=== PATIENT | male | born 1980 | race Hispanic/Latino ===

== ENCOUNTER 2020-10-05 14:34 | Emergency (ER) | payer BC ==
[~2020-10-05] VITALS: Ht 172.7 cm; Wt 127.0 kg
--- OUTSIDE RECORDS SUMMARY | 2020-10-05 15:07 | XMS REPORT | Clinical Summary ---
Author Author MARIYA [facility] Address Unknown Phone Unavailable Care Team Providers Care Installer Name Role Phone CurtChristian Humphrey PCP Allergies No Known Allergies Medications End Date Status Medication Sig Dispensed Refills Start Date 04/26/2021 Active bisoprolol (ZEBETA) 5 MG Take 0.5 180 tablet 0 0 tablet tablets (2.5 0 mg total) by mouth daily. 04/20/2021 Active acetaminophen (TYLENOL) Take 2 30 tablet 0 325 MG tablet tablets (650 0 mg total) by mouth every 6 (six) hours as needed for up to 360 days. 04/26/2021 Active aspirin 81 MG EC tablet Take 1 tablet 90 tablet 3 (81 mg total) 0 by mouth daily. 06/25/2020 dexAMETHasone (DECADRON) Take 1 tablet 60 tablet 0 0.5 MG tablet (0.5 mg 0 total) by mouth daily for 60 days. 06/24/2020 gabapentin (NEURONTIN) Take 1 180 capsule 0 100 MG capsule capsule (100 0 mg total) by mouth 3 (three) times daily for 60 days. 06/26/2020 fludrocortisone Take 1 tablet 30 tablet 0 04/27/20 2 (FLORINEF) 0.1 mg tablet (0.1 mg 0 total) by mouth every other day for 60 days. 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), simple virilizing Encounters Care Team Description Date Type Specialty Rasahun Cunningham MD BRONCHOSCOPY,LAVAGE 04/24/2020 Surgery Gastroenterology Marlena, MD Nitesh Whiting Jennifer Savannah 04/24/2020 Anesthesia Gastroenterology Event Rishi Peterson MD Farjo, Rashaun Castellanos MD Hemoptysis 04/22/2020 Hospital Intensive Care - Encounter 04/25/2020 04/22/2020 Travel after 10/05/2019 Social History Date Tobacco Use Types Packs/Day Years Used Never Smoker Smokeless Tobacco: Never Used Drinks/Week oz/Week Comments Alcohol Use Yes Alcohol Habits Answer Date Recorded How often do you have a drink containing alcohol? 2-4 time s a month 04/22/2020 How many drinks containing alcohol do you have on No t asked a typical day when you are drinking? How often do you have six or more drinks on one Not asked occasion? Sex Assigned at Date Recorded Not on file Last Filed Vital Signs Reading Time Taken Comments Vital Sign 121/74 04/25/2020 6:00 PM CDT Blood Pressure 84 04/25/2020 6:00 PM CDT Pulse 36.9 C (98.4 F) 04/25/2020 8:00 AM CDT Temperature 20 04/25/2020 6:00 PM CDT Respiratory Rate 96% 04/25/2020 6:00 PM CDT Oxygen Saturation - - Inhaled Oxygen Concentration 137.8 kg (303 lb 12.7 oz) 04/23/2020 10:30 PM CDT Weight 177.8 cm (5' 10") 04/22/2020 9:49 PM CDT Height 43.59 04/22/2020 9:49 PM CDT Body Mass Index Plan of Treatment Health Maintenance Due Date Last Done Comments LIPID PANEL 2015 INFLUENZA VACCINE (#1) 2020 12/09/2019, 08/12/2017 Procedures Comments Procedure Name Priority Date/Time Associated Diag nosis RHYTHM STRIP - SCAN 04/26/2020 2:10 PM CDT XR CHEST 1 VIEW Routine 04/25/2020 PORTABLE/BEDSIDE 8:46 AM CDT HIV-1 ANTIGEN WITH Routine 04/25/2020 HIV-1/2 ANTIBODY 3:58 AM CDT PHOSPHORUS Routine 04/25/2020 3:58 AM CDT MAGNESIUM Routine 04/25/2020 3:58 AM CDT BASIC METABOLIC PANEL (7) Routine 04/25/2020 3:58 AM CDT CBC W/PLT COUNT & AUTO Routine 04/25/2020 DIFFERENTIAL 2:55 AM CDT CBC W/PLT COUNT & AUTO Routine 04/25/2020 DIFFERENTIAL 2:55 AM CDT REPORT OF PROCEDURE - 04/24/2020 ENDOSCOPY URL 2:47 PM CDT CYTOLOGY REQUEST Routine 04/24/2020 2:36 PM CDT CYTOLOGY AP Routine 04/24/2020 2:36 PM CDT BODY FLUID CELL COUNT Routine 04/24/2020 WITH DIFFERENTIAL 2:35 PM CDT AFB CULTURE + SMEAR Routine 04/24/2020 (NON-SPUTUM) 2:35 PM CDT BRONCHIAL CULTURE + GRAM Routine 04/24/2020 STAIN 2:35 PM CDT BRONCHOSCOPY,LAVAGE 04/24/2020 Hemoptysis 1:45 PM CDT PROTHROMBIN TIME/INR Routine 04/24/2020 9:33 AM CDT SARS-COV2/RT-PCR ([facility] & STAT 04/24/2020 REF LABS) 8:26 AM CDT CBC W/PLT COUNT & AUTO Routine 04/24/2020 DIFFERENTIAL 3:24 AM CDT PHOSPHORUS Routine 04/24/2020 3:24 AM CDT MAGNESIUM Routine 04/24/2020 3:24 AM CDT BASIC METABOLIC PANEL (7) Routine 04/24/2020 3:24 AM CDT CBC W/PLT COUNT & AUTO Routine 04/24/2020 DIFFERENTIAL 3:[address] CHEST PE TEST DESIGN STAT 04/23/2020 11:22 PM CDT CBC W/PLT COUNT & AUTO Routine 04/23/2020 DIFFERENTIAL 4:24 AM CDT PHOSPHORUS Routine 04/23/2020 4:24 AM CDT MAGNESIUM Routine 04/23/2020 4:24 AM CDT BASIC METABOLIC PANEL (7) Routine 04/23/2020 4:24 AM CDT CBC W/PLT COUNT & AUTO Routine 04/23/2020 DIFFERENTIAL 4:24 AM CDT CBC W/PLT COUNT & AUTO STAT 04/22/2020 DIFFERENTIAL 10:54 PM CDT BLOOD GAS, VENOUS Routine 04/22/2020 10:54 PM CDT PLATELET COUNT Routine 04/22/2020 10:54 PM CDT FIBRINOGEN Routine 04/22/2020 10:54 PM CDT APTT Routine 04/22/2020 10:54 PM CDT PROTHROMBIN TIME/INR Routine 04/22/2020 10:54 PM CDT PHOSPHORUS STAT 04/22/2020 10:54 PM CDT MAGNESIUM STAT 04/22/2020 10:54 PM CDT BASIC METABOLIC PANEL (7) STAT 04/22/2020 10:54 PM CDT CBC W/PLT COUNT & AUTO STAT 04/22/2020 DIFFERENTIAL 10:54 PM CDT XR CHEST 1 VIEW STAT 04/22/2020 PORTABLE/BEDSIDE 10:20 PM CDT after 10/05/2019 Results * RHYTHM STRIP - SCAN (04/26/2020 2:10 PM CDT) Narrative Performed At This result has an attachment that is n ot available. * XR chest 1 view portable / bedside (04/25/2020 8:46 AM CDT) Only the most recent of 2 results within the time period is included. Specimen Narrative Performed At FINAL REPORT [facility] CLINICAL HISTORY: hx of hemoptysis TECHNIQUE: 1 view of the chest. COMPARISON: 04/22/2020 IMPRESSION: There is increased left lower lung atel ectasis. There is blunting of the left costophrenic angle. The right lung appears relatively well-aerated. The cardiomediastinal susan houette is within normal limits for size. The visualized bones a ppear intact. Signed: Apolinar Carrera MD Report Verified Date/Time: 04/25/2020 09:09:25 Reading Location: [facility] Radiolo gy Reading Room Procedure Note Interface, External Ris In - 04/25/2020 9:11 AM CDT FINAL REPORT CLINICAL HISTORY: hx of hemoptysis TECHNIQUE: 1 view of the chest. COMPARISON: 04/22/2020 IMPRESSION: There is increased left lower lung atelectasis. There is blunting of the left costophrenic angle. The right lung appears relatively well-aerated. The cardiomediastinal silhouette is within normal limits for size. The visualized bones appear intact. Signed: Apolinar Carrera MD Report Verified Date/Time: 04/25/2020 09:09:25 Reading Location: [facility] Radiology Reading Room Performing Organization Address City/[facility] Ph one Number GE RIS * HIV-1 Antigen with HIV-1/2 Antibody (04/25/2020 3:58 AM CDT) HIV-1 Antigen Nonreactive Nonreactive [facility] with HIV 1&2 [facility] Antibody [facility]ENTER Specimen Blood Narrative Performed At Service Specialist ID - PIAYA L [facility] Performing Organization Address City/[facility] Cent[facility] Ph one Number [place] [address] MEDICAL CENTER * Phosphorus (04/25/2020 3:58 AM CDT) Only the most recent of 4 results within the time period is included. Phosphorus 2.7Comment: Specimen slightly 2.3 - 4.7 mg/dL [facility] Specimen Blood Narrative Performed At Service Specialist ID - LEOBARDO L [facility] Performing Organization Address [facility] Ph one Number [place] [address] [phone] [place] [address] * Magnesium (04/25/2020 3:58 AM CDT) Only the most recent of 4 results within the time period is included. Magnesium 2.1Comment: Specimen slightly 1.6 - 2.6 mg/dL [facility] Specimen Blood Narrative Performed At Service Specialist ID - LEOBARDO L [facility] Performing Organization Address [facility] one Number [place] [address] [address] [phone] [place] [address] * Basic Metabolic Panel (04/25/2020 3:58 AM CDT) Only the most recent of 4 results within the time period is included. Sodium 132 (L) 136 - 145 meq/L [facility] Potassium 5.0Comment: Specimen slightly 3.5 - 5.1 meq/L [facility] Chloride 103 98 - 107 meq/L [facility] CO2 19 (L) 22 - 29 meq/L [facility] BUN 15 7 - 21 mg/dL [facility] Creatinine 1.13Comment: Specimen slightly 0.57 - 1.25 mg/ dL [facility] Glucose 191 (H) 70 - 105 mg/dL [facility] Calcium 9.0 8.4 - 10.2 mg/dL [facility] EGFR 72Comment: ESTIMATED GFR IS mL/min/1.73 sq m [facility] NOT ACCURATE CREATININE [facility] CLEARANCE IN PREDICTING [facility] CENTER GLOMERULAR FILTRATION RATE. ESTIMATED GFR IS NOT APPLICABLE FOR DIALYSIS PATIENTS. Specimen Blood Narrative Performed At Service Specialist ID - LEOBARDO L [facility] Performing Organization Address City/State/Zipcode Ph one Number [facility] [address] [place], [place] [address] [facility] * CBC with platelet count + automated diff (04/25/2020 2:55 AM CDT) Only the most recent of 4 results within the time period is included. WBC 13.3 (H) 3.5 - 10.5 K/L [facility] RBC 6.75 (H) 4.63 - 6.08 M/L [facility] Hemoglobin 18.6 (H) 13.7 - 17.5 GM/DL [facility] Hematocrit 57.2 (H) 40.1 - 51.0 % [facility] MCV 84.7 79.0 - 92.2 fL [facility] MCH 27.6 25.7 - 32.2 pg [facility] MCHC 32.5 32.3 - 36.5 GM/DL [facility] RDW 17.0 (H) 11.6 - 14.4 % [facility] Platelets 258 150 - 450 K/CU MM [facility] MPV 11.3 9.4 - 12.4 fL [facility] nRBC 0 0 - 0 /100 WBC [facility] % Neutros 82 % [facility] % Lymphs 12 % [facility] % Monos 5 % [facility] % Eos 0 % [facility] % Baso 0 % [facility] # Neutros 10.95 (H) 1.78 - 5.38 K/L [facility] # Lymphs 1.58 1.32 - 3.57 K/L [facility] # Monos 0.61 0.30 - 0.82 K/L [facility] # Eos 0.01 (L) 0.04 - 0.54 K/L [facility] # Baso 0.05 0.01 - 0.08 K/L [facility] Immature 1 0 - 1 % [facility] Granulocytes-Re [facility] Specimen Blood Performing Organization Address City/[facility] Ph one Number [facility] [address] [place] [address] [facility] * REPORT OF PROCEDURE - ENDOSCOPY URL (04/24/2020 2:47 PM CDT) Narrative Performed At This result has an attachment that is n ot available. * CYTOLOGY REQUEST (04/24/2020 2:36 PM CDT) Cytology See Separate Report [facility] Specimen BAL - Structure of upper lobe of right lung (body structure) Performing Organization Address [facility] Ph one Number [address] [facility] * Cytology (04/24/2020 2:36 PM CDT) Case Report Medical Cytology Report [facility] Case: [id number] [facility]ENTER Authorizing Provider: Rashaun Cunningham MD Collected: 04/24/2020 02:36 PM Ordering Location: [place] [address] ICU Received: 04/24/2020 03:19 PM Pathologist: Tita Parkinson MD Specimen: Lung, Right Upper Lobe DIAGNOSIS RIGHT UPPER LOBE LUNG BAL [facility] Ashanti ctronically (CYTOSPINS): [facility] signed by Tesha, - NEGATIVE FOR MALIGNANCY [facility] MD Tita on Signing Pathologist 04/25/2020 at 5:53 Direct Phone Line: PM [phone] CPT Code(s) [address] [facility] CLINICAL DATA Hemoptysis [facility] SPECIMEN SOURCE RIGHT UPPER LOBE LUNG BAL [facility] GROSS 27 mls in cytorich red; 4 [facility] DESCRIPTION cytospins [facility] Collected: [id number] [facility] Received: [id number] STATEMENT OF Satisfactory [facility] ADEQUACY [facility] Gross [facility] 'S assessment was [place], [facility] BC performed at Pathology, [address] [place] [id number], Technical [facility] 'S component was [facility] BC performed at Pathology, [address] [place] [id number], Professional [facility]KE 'S component was [facility] performed at Pathology, [address] [place] [id number], Specimen BAL - Structure of upper lobe of right lung (body structure) Narrative Performed At This result has an attachment that is n ot available. Performing Organization Address City/State/Zipcode Ph one Number [address] [facility] * AFB culture + smear (non-sputum) (04/24/2020 2:35 PM CDT) Result No acid-fast bacilli isolated [facility] in 42 days [facility] AF[facility] Smear No acid fast bacilli seen [facility] Specimen BAL - Structure of upper lobe of right lung (body structure) Performing Organization Address City/State/Zipcode Ph one Number [facility] [address] [place] [address] [facility] * Bronchial culture + gram stain (04/24/2020 2:35 PM CDT) Result 2+ Normal respiratory sonia [facility] present [facility] Gram Stain <1+ WBCs [facility] Result [facility] Gram Stain No organisms seen [facility] Result [facility] Specimen BAL - Structure of upper lobe of right lung (body structure) Performing Organization Address [facility] one Number [address] [facility] * Body fluid cell count with differential (04/24/2020 2:35 PM CDT) Appearance Turbid (A) Clear [facility] Color Harper (A) Colorless, Straw [facility] RBCs 15,000 (H) <=1 /cu mm [facility] Adjusted WBC 105 (H) <=5 /cu mm [facility] Lining Cells 0 <=1 /cu mm [facility] % Segs 71 % [facility] % Lymphs 8 % [facility] % Monos 21 % [facility] % Eos 0 % [facility] % Baso 0 % [facility] Container Body EDTA Tube [facility] Specimen BAL - Structure of upper lobe of right lung (body structure) Performing Organization Address [facility] one Number [address] [facility] * Prothrombin time/INR (04/24/2020 9:33 AM CDT) Only the most recent of 2 results within the time period is included. Protime 14.1 11.9 - 14.2 seconds [facility] INR 1.1 <=5.9 [facility] Specimen Blood Narrative Performed At Effective 04/06/2019: PT Reference Range Change [facility] New: 11.9-14.2 Previous: 11.7-14.7 [facility] RECOMMENDED COUMADIN/WARFARIN INR THERA PY RANGES STANDARD DOSE: 2.0-3.0 Includes: PROP HYLAXIS for venous thrombosis, systemic embolization; TREATMENT for venous thro mbosis and/or pulmonary embolus. HIGH RISK: Target INR is 2.5-3.5 for pa tients wiht mechanical heart valves. Performing Organization Address City/State/Zipcode Ph one Number [facility] [address] [place], [place] [address] MEDICAL CENTER * SARS-CoV2/RT-PCR (Symptomatic ONLY) (04/24/2020 8:26 AM CDT) SARS-COV2/RT-PC Not Detected Not Detected, [facility] R Negative [facility] SARS-COV-2 [facility] PERFORMING LAB [facility] Specimen Other - Nasopharyngeal wall structure (body structure) Narrative Performed At Negative results do not preclude SARS-C oV-2 infection and should not be used as [facility] the sole basis for patient management decisions. Nega tive results must be [facility] combined with clinical observations, pa tient history, and epidemiological information. A false negative result ma y occur if a specimen is improperly collected, transported or handled. The limit of detection for this assay i s 250 copies/mL. This SARS CoV-2 test is a rapid, real-t hailey RT-PCR test intended for the qualitative detection of nucleic acid f rom SARS-CoV-2 in a nasopharyngeal swab specimen collected from individuals jose luis pected of COVID-19 by their healthcare provider. This test has not been Food and Drug Ad ministration (FDA) cleared or approved and has been authorized by FDA under an Emergency Use Authorization (EUA). This EUA will be effective until the declara tion that circumstances exist justifying the authorization of the emergency use of in vitro diagnostic tests for detection and/or diagnosis of COVID-19 is terminated under Section 564(b)(2) of the Act or the EUA is revoked under Sec tion 564(g) of the Act. Fact Sheet for Healthcare Providers: https://www.FREECULTR.Pharmalink/Documents/Xpert%20Xpress%20SARS%20CoV-2/Fact%20Sheets/30 2-3802%61QUBG-FTA-3%20HEALTHCARE%20PROV IDERS%20FACT%20SHEET.pdf Fact Sheet for Healthcare Patients: https://www.FREECULTR.Pharmalink/Documents/Xpert%20Xpress%20SARS%20CoV-2/Fact%20Sheets/30 2-3801%71QOME-MLY-9%20PATIENT%20FACT%20 SHEET.pdf Performing Laboratory: [facility] [address] [place] [address]. [place] [address] Performing Organization Address City/State/Zipcode Ph one Number MARIYA [facility] [address] [place] [address] [facility]ENTER * CT chest for pulmonary embolus (04/23/2020 11:22 PM CDT) Specimen Narrative Performed At FINAL REPORT [employer] Comparison: CTPA from outside instituti on dated 04/21/2020. Indication: 39-year-old male with acute chest pain, hypoxia, and shortness of breath clinically suspicio us for acute pulmonary embolism. Technique: Postcontrast axial images of the ches t were obtained from above the arch level to the [facility] enhancement of the pulmonary artery. This exam was performed accordi ng to the departmental dose optimization program which includes aut omated exposure control, adjustment of the mA and/or kV accordin g to the patient size, and/or use of an iterative reconstruction tech nique. Findings: Vascular: The study is diagnostic to the level of the proximal segmental, motion artifact limits evaluation of di stal pulmonary arteries. pulmonary arteries. Pulmonary arteries: No evidence of acut e or chronic pulmonary embolism. Specifically, the pulmonary arteries are widely patent, without evidence for filling defect or vascular cutoff. The pulmonary arteries are normal in size. Thoracic aorta: Normal in size. No acut e aortic pathology. The left vertebral artery arises from the arch. The origins of the arch branch vessels are all widely patent. Pulmonary veins: Normal configuration. Coronary arteries: Normal configuration with no significant atherosclerotic calcifications. Systemic veins: No identified thrombus. Chest: Lungs/pleura: Again seen is a 4 mm pulm onary nodule in the right lateral lower lobe which is adjacent to a distal branch of the right lower lobe pulmonary vein. Consolidativ e airspace opacities in the bilateral right greater than left lower lungs, may be in part related to discoid atelectasis however aspirati on versus developing pneumonia in the right lower lobe can have this a ppearance. No pleural effusion or pneumothorax. Mediastinum/meaghan: No pathologically enl arged lymph nodes. Esophagus is normal in caliber. Coarse calcificat ion in the right thyroid lobe otherwise the Thyroid gland is unremark able. Heart: The cardiac chambers demonstr ate normal atrioventricular and ventriculoarterial concordance, and sys temic and pulmonary venous return. The cardiac chamber sizes are n ormal. No pericardial effusion. No thrombus identified within the cardiac chambers. Axillae/subcutaneous soft tissues: No p athologically enlarged axillary lymph nodes. No suspicious sub cutaneous nodules or fluid collections. Visualized upper abdomen: Visualized co mplex bilateral heterogeneous adrenal lesions measuring up to 6.9 cm on the left and 5.2 cm on the right. Hypodensity of the hepatic paren chyma may be related to timing of contrast versus hepatic steatosis . Otherwise visualized abdomen is unremarkable. Bones: No aggressive osseous lesions or acute fractures. Multilevel degenerative changes in thoracic spine. Impression: No evidence for acute or chronic pulmon dimitris embolism however limited evaluation of the distal pulmonary mackenzie ry secondary to motion artifact. Nonspecific 4 mm pulmonary nodule in th e right lateral lower lobe adjacent to a distal branch of the righ t lower lobe pulmonary vein. Heterogeneous airspace opacity in the r ight greater than left lower lungs may be in part related to atelect asis however aspiration and developing infection are differential c oncern. Bilateral heterogeneous adrenal lesions , incompletely visualized and characterized on this examination. Re commend comparison study prior if available versus adrenal protocol cr oss-sectional imaging on a nonemergent basis. Signed: Sridhar Cornejo MD Report Verified Date/Time: 04/24/2020 00:05:46 Procedure Note Interface, External Ris In - 04/24/2020 12:08 AM CDT FINAL REPORT Comparison: CTPA from outside institution dated 04/21/2020. Indication: 39-year-old male with acute chest pain, hypoxia, and shortness of breath clinically suspicious for acute pulmonary embolism. Technique: Postcontrast axial images of the chest were obtained from above the arch level to the lower chest at maximum enhancement of the pulmonary artery. This exam was performed according to the departmental dose optimization program which includes automated exposure control, adjustment of the mA and/or kV according to the patient size, and/or use of an iterative reconstruction technique. Findings: Vascular: The study is diagnostic to the level of the proximal segmental, motion artifact limits evaluation of distal pulmonary arteries. pulmonary arteries. Pulmonary arteries: No evidence of acute or chronic pulmonary embolism. Specifically, the pulmonary arteries are widely patent, without evidence for filling defect or vascular cutoff. The pulmonary arteries are normal in size. Thoracic aorta: Normal in size. No acute aortic pathology. The left vertebral artery arises from the arch. The origins of the arch branch vessels are all widely patent. Pulmonary veins: Normal configuration. Coronary arteries: Normal configuration with no significant atherosclerotic calcifications. Systemic veins: No identified thrombus. Chest: Lungs/pleura: Again seen is a 4 mm pulmonary nodule in the right lateral lower lobe which is adjacent to a distal branch of the right lower lobe pulmonary vein. Consolidative airspace opacities in the bilateral right greater than left lower lungs, may be in part related to discoid atelectasis however aspiration versus developing pneumonia in the right lower lobe can have this appearance. No pleural effusion or pneumothorax. Mediastinum/meaghan: No pathologically enlarged lymph nodes. Esophagus is normal in caliber. Coarse calcification in the right thyroid lobe otherwise the Thyroid gland is unremarkable. Heart: The cardiac chambers demonstrate normal atrioventricular and ventriculoarterial concordance, and systemic and pulmonary venous return. The cardiac chamber sizes are normal. No pericardial effusion. No thrombus identified within the cardiac chambers. Axillae/subcutaneous soft tissues: No pathologically enlarged axillary lymph nodes. No suspicious subcutaneous nodules or fluid collections. Visualized upper abdomen: Visualized complex bilateral heterogeneous adrenal lesions measuring up to 6.9 cm on the left and 5.2 cm on the right. Hypodensity of the hepatic parenchyma may be related to timing of contrast versus hepatic steatosis . Otherwise visualized abdomen is unremarkable. Bones: No aggressive osseous lesions or acute fractures. Multilevel degenerative changes in thoracic spine. Impression: No evidence for acute or chronic pulmonary embolism however limited evaluation of the distal pulmonary artery secondary to motion artifact. Nonspecific 4 mm pulmonary nodule in the right lateral lower lobe adjacent to a distal branch of the right lower lobe pulmonary vein. Heterogeneous airspace opacity in the right greater than left lower lungs may be in part related to atelectasis however aspiration and developing infection are differential concern. Bilateral heterogeneous adrenal lesions, incompletely visualized and characterized on this examination. Recommend comparison study prior if available versus adrenal protocol cross-sectional imaging on a nonemergent basis. Signed: Sridhar Cornejo MD Report Verified Date/Time: 04/24/2020 00:05:46 Performing Organization Address [facility] Ph one Number GE RIS * aPTT (04/22/2020 10:54 PM CDT) PTT 30.5 22.5 - 36.0 seconds [facility] Specimen Blood Performing Organization Address [facility] Ph one Number [address] [facility] * Fibrinogen (04/22/2020 10:54 PM CDT) Fibrinogen 321 225 - 434 mg/dl [facility] Specimen Blood Performing Organization Address [facility] Ph one Number [address] [facility] * Platelet count (04/22/2020 10:54 PM CDT) Platelets 228 150 - 450 K/CU MM [facility] Specimen Blood Narrative Performed At Service Specialist ID - [id number] [facility] Performing Organization Address [facility] one Number [address] [facility] * Blood gas, venous (04/22/2020 10:54 PM CDT) pH, Tahri 7.39 7.32 - 7.42 [facility] pCO2, Tahir 42 41 - 51 mmHg [facility] pO2, Tahir 42 (H) 25 - 40 mmHg [facility] O2 Sat, Tahir 77.2 (H) 40.0 - 70.0 % [facility] HCO3, Tahir 25 21 - 29 mmol/L [facility] Base Excess, -0.4 -2.0 - 3.0 mmol/L [facility] Patient 37.0 C [facility] Temperature [facility] FIO2 100.0 % [facility] Specimen Blood Performing Organization Address City/State/Zipcode Ph one Number [facility] [address] [place], [place] [address] [facility] after 10/05/2019 Insurance Type Payer Benefit Subscriber ID Effective Phone Address Plan / Dates Group PPO BLUE CROSS/BLUE [employer]BS PPO [id number] 2017-P [phone] [address] EPO resent [id number] [place] [id number] Advance Directives For more information, please contact: [phone] Date Inactivated Comments Code Status Date Activated 04/25/2020 9:37 PM Full Code 04/24/2020 6:53 AM This code status was determined by: Patient
--- OUTSIDE RECORDS SUMMARY | 2020-10-05 15:07 | XMS REPORT | Continuity of Care Document ---
Author Author [facility] t Organization [facility] Address [address] [place] [address] Phone Unavailable Care Team Providers Care Area Attendant Name Role Phone NONSTAFF PCP Unavailable ARTURO LEIGH Attphys Unavailable Lilil Wu MD, Arturo Attphys [phone] Octavio VERDUZCO, Jasmin Rodney Attphys Marlena VERDUZCO, Collin Jimenes Attphys [phone] Renee Dowling Attphys [phone] Wade OATES Attphys Unavailable ANDRES BERRIOS Attphys Unavailable LILLI WU ARTURO Admphys Unavailable Wade AMBROSE Admphys Unavailable Payers Payer Name Policy Type Policy Number Effective Date Expiration Date S deepak BLUE CROSS/BLUE SHIELDBCBS PPO POS EPO [id number] [facility] [id number], [place] [address]YMQ [id number] 2017 00:00:00 [facility] [employer] [place] P[place] [id number] I [facility] Problems Condition Name Condition Details Condition Category Status Onset Date Resolution Date Last Treatment Date Treating Clinician Comments Source Hemoptysis Hemoptysis Disease Active 2020-04-23 00:00:00 [facility] 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 Social History Social Habit Start Date Stop Date Quantity Comments Source History SDOH Alcohol Std Drinks [facility] History SDOH Alcohol Binge [facility] Sex Assigned At [facility] Tobacco use and exposure 2020-04-26 00:00:00 2020-04-26 00:00:00 Jo r used [facility] Alcohol intake 2020-04-26 00:00:00 2020-04-26 00:00:00 [facility] of [facility] (finding[facility] Alcohol Frequency 2020-04-22 00:00:00 2020-04-22 00:00:0 0 3 [facility] Smoking Status Start Date Stop Date Source Never smoker [facility] Medications Ordered Medication Name Filled Medication Name Start Date Stop Da te Current Medication? Ordering Clinician Indication Dosage Frequency Signature (SIG) Comments Components Source fludrocortisone (FLORINEF) 0.1 mg tablet 2020-04 00:00:00 2020-06-26 23:59:00 No .1mg Take 1 tablet (0.1 mg total) by mouth every other day for 60 days. [facility] bisoprolol (ZEBETA) 5 MG tablet 2020-04-26 00:00:00 23:59:00 No 2.5mg QD Take 0.5 tablets (2.5 mg total) by mouth daily. [facility] aspirin 81 MG EC tablet 2020-04-26 00:00:00 2021-04-26 23:59:00 No 81mg QD Take 1 tablet (81 mg total) by mouth daily. [facility] dexAMETHasone (DECADRON) 0.5 MG tablet 2020-04-09 8 00:00:00 2020-06-25 23:59:00 No .5mg QD Take 1 tablet (0.5 mg total) by mouth daily for 60 days. [facility] acetaminophen (TYLENOL) 325 MG tablet 2020-04-25 00:00 :00 2021-04-20 23:59:00 No 650mg Take 2 tablets (650 mg total) by mouth every 6 (six) hours as needed for up to 360 days. [facility] gabapentin (NEURONTIN) 100 MG capsule 2020-04-25 00:00 :00 2020-06-24 23:59:00 No 100mg Q.[id number] Take 1 capsule (100 mg total) by mouth 3 (three) times daily for 60 days. [facility] Vital Signs Vital Name Observation Time Observation Value Comments Source Systolic blood pressure 2020-04-25 18:00:00 121 mm[Hg] [facility] Diastolic blood pressure 2020-04-25 18:00:00 74 mm[Hg] [facility] Heart rate 2020-04-25 18:00:00 84 /min [facility] Respiratory rate 2020-04-25 18:00:00 20 /min [facility] Oxygen saturation in Arterial blood by Pulse oximetry 04-25 18:00:00 96 /min [facility] Body temperature 2020-04-25 08:00:00 36.89 Dinah [facility] Body weight 2020-04-23 22:30:00 137.8 kg [facility] BMI 2020-04-23 22:30:00 43.59 kg/m2 [facility] Body height 2020-04-22 21:49:00 177.8 cm [facility] Body Temperature 2020-04-22 19:37:00 98.6 [degF] [facility] Weight 2020-04-22 12:30:00 280 [lb_av] [facility] BMI (Body Mass Index) 2020-04-22 12:30:00 42.6 kg/m2 [facility] Body Temperature 2020-04-21 18:20:00 98.3 [degF] [facility] Weight 2020-04-21 15:29:00 280 [lb_av] [facility] BMI (Body Mass Index) 2020-04-21 15:29:00 42.6 kg/m2 [facility] Procedures Procedure Date / Time Performed Performing Clinician Sourc e RHYTHM STRIP - SCAN 2020-04-26 14:10:28 Provider, Default Noah medina [facility] XR CHEST 1 VIEW PORTABLE/BEDSIDE 2020-04-25 08:46:00 Sukumar Cunningham [facility] BASIC METABOLIC PANEL (7) 2020-04-25 03:58:00 JocelynTiana olvera Polyc simone [facility] MAGNESIUM 2020-04-25 03:58:00 Jocelyn Tanartise Polycarp [facility] PHOSPHORUS 2020-04-25 03:58:00 [facility] HIV-1 ANTIGEN WITH HIV-1/2 ANTIBODY 2020-04-25 03:58:00 Inch [facility]AllenCongregational A [facility] CBC W/PLT COUNT & AUTO DIFFERENTIAL 2020-04-25 02:55:00 Emeka Banks [facility] REPORT OF PROCEDURE - ENDOSCOPY URL 2020-04-24 14:47:43 Erasto Cunningham [facility] CYTOLOGY REQUEST 2020-04-24 14:36:14 Octavio [facility] CYTOLOGY 2020-04-24 14:36:00 Octavio [facility] BRONCHIAL CULTURE + GRAM STAIN 2020-04-24 14:35:29 Octavio [facility] AF[employer] CULTURE + SMEAR (NON-SPUTUM) 2020-04-24 14:35:29 Sukumar Cunningham [facility] BODY FLUID CELL COUNT WITH DIFFERENTIAL 2020-04-24 14:35:29 Marline middleton [facility] BRONCHOSCOPY,LAVAGE 2020-04-24 13:45:00 Rashaun Cunningham [facility] PROTHROMBIN TIME/INR 2020-04-24 09:33:00 Octavio [facility] SARS-COV2/RT-PCR ([facility]) 2020-04-24 08:26:00 Aidan Putnam [facility] BASIC METABOLIC PANEL (7) 2020-04-24 03:24:00 Jocelyn, Tanwie Polyc simone [facility] MAGNESIUM 2020-04-24 03:24:00 Jocelyn, Tanwie Polycarp [facility] PHOSPHORUS 2020-04-24 03:24:00 Jocelyn, Tanwie Polycarp [facility] CBC W/PLT COUNT & AUTO DIFFERENTIAL 2020-04-24 03:24:00 JocelynEmeka Polycarp [facility] CT CHEST PE TEST DESIGN 2020-04-23 23:22:00 Jl Dixon [facility] BASIC METABOLIC PANEL (7) 2020-04-23 04:24:00 Jocelyn, Tanwie Polyc simone [facility] MAGNESIUM 2020-04-23 04:24:00 Jocelyn, Tanwie Polycarp [facility] PHOSPHORUS 2020-04-23 04:24:00 Jocelyn, Tanwie Polycarp [facility] CBC W/PLT COUNT & AUTO DIFFERENTIAL 2020-04-23 04:24:00 Jocelyn, Emeka ash Polycarp [facility] BASIC METABOLIC PANEL (7) 2020-04-22 22:54:00 Jocelyn, Tanwie Polyc simone [facility] MAGNESIUM 2020-04-22 22:54:00 Jocelyn, Tanwie Polycarp [facility] PHOSPHORUS 2020-04-22 22:54:00 Jocelyn, Tanwie Polycarp [facility] PROTHROMBIN TIME/INR 2020-04-22 22:54:00 Jocelyn, Tanwie Polycarp [facility] APTT 2020-04-22 22:54:00 Jocelyn, Tanwie Polycarp [facility] FIBRINOGEN 2020-04-22 22:54:00 Jocelyn, Tanwie Polycarp [facility] BLOOD GAS, VENOUS 2020-04-22 22:54:00 Jocelyn, Tanwie Polycarp [facility] CBC W/PLT COUNT & AUTO DIFFERENTIAL 2020-04-22 22:54:00 Emeka Banks Polycsimone [facility] XR CHEST 1 VIEW PORTABLE/BEDSIDE 2020-04-22 22:20:00 Tyler Banks Polycsimone [facility] Computed tomography of chest with contrast 2020-04-21 00:00:00 [facility] Plan of Care Planned Activity Planned Date Details Comments Source Future Scheduled Test 2020-07-10 00:00:00 INFLUENZA VACCINE (#1) [code = INFLUENZA VACCINE (#1)] [facility] Future Scheduled Test 2015 00:00:00 Lipid panel (proce dure) [code = 31919925] [facility] r Encounters Start Date/Time End Date/Time Encounter Type [facility] ID Source 2020-04-22 12:22:00 2020-04-22 21:04:00 Departed Emergency Room 1 DOLORES OATES [facility] [id number] [facility] 2020-04-21 15:27:00 2020-04-21 18:33:00 Departed Emergency Room 1 ANDRES BERRIOS [facility] [id number] [facility] Results Test Description Test Time Test Comments Results Result Comments Source AFB culture + smear (non-sputum) 2020-06-04 07:59:00 Test Item Result (test code = 6463-4) No acid-fast bacilli isolated in 42 day s AFB Smear (test code = 25178-9) No acid fast bacilli seen [facility] + [facility]MEAR (NON-SPUTUM)2020-06-04 07:59:00 * Test Item Value Reference Range Interpretation Comments CULTURE (BEAKER) (test code = 1095) No acid-fast bacilli isolate d in 42 days AFB SMEAR (BEAKER) (test code = 994) No acid fast bacilli seen Bronchial culture + gram [id number] 08:45:00* Test Item Value Reference Range Interpretation Comments Result (test code = 6463-4) 2+ Normal respiratory sonia present Gram Stain Result (test code = 1123) No organisms [facility] [id number] 08:45:00* Test Item Value Reference Range Interpretation Comments CULTURE (BEAKER) (test code = 1095) 2+ Normal respiratory sonia pre sent GRAM STAIN RESULT (BEAKER) (test code = 1123) <1+ WBCs GRAM STAIN RESULT (BEAKER) (test code = 27223) No organisms seen [id number] 17:53:00* Test Item Value Reference Range Interpretation Comments Case Report (test code = 104) Medical Cytology Report Case: [id number] Authorizing Provider: Rashaun Cunningham MD Collected: 04/24/2020 02:36 PM Ordering Location: [place] [address] ICU Received: 04/24/2020 03:19 PM Pathologist: Tita Parkinson MD Specimen: Lung, Right Upper Lobe DIAGNOSIS (test code = 3220) [file] [id number]FP7Ic47NeB2WrkrEGO4nX== CPT Code(s) (test code = 3357) m9lycOUgDRUniHJrWfUyORJvETOoq6ksJDRbgISaJoLsCuRlPwUgMuikrSJmKFKnEjCvy9lgl363hFRo c8oaWGJbIjQ4dKHyEAJjmCXxV726t2fnn4qacsBliDU0UFFoHUF6EStohxWbbzA6BGecfHDfVbZ6PAoh ajEtQLbeywWznsQlDje3NFTvZ247LCA7rUrtm2rcBQ C8HJBoMYCmMvUjOq7dnXLhZ480WJAvWMVFAOSpoMf7VWCwuhGpgrHmwGFPg644V525s7arQVWkquMghU oAeacmg2plX519ALZarKBehrIyCdTlRANneYWjxTY4YDRwLE2ufkluQaIlDC9dsagbLuOaGQ2edax4Yh FgVK3jnlstWqHnBUeuJARhvkngDTFmc1FvfucgKY5q G4Har6M7fA6nkPNlHCGqeKDcEtOhFEJzms3nbLIpIJqzk5MeFVY9wzO1gNDpgDMkQSUiRR02Noixq2Ig LmhlXUW6VBNrwhIzf8Omm6nfGpOymdElK5wdZ8EkFGMbJBSiTOIlDzWezzYxd0Pdz8UbqOCizGl0f8ly UGJxQOXopSwtk7ayEOX9XONzP3J3kYRwq6cqMLclWQ BmyRR9fdjpBStgFFXrltV4uxguBUkeIAHwjPY3byodOLscOCEbNcY7koolINwrBIIfEDC4TPsxz809EB O6FHwhChuqZKulZXZpqrYiogUafCzaHFTkRDWkIWeqVUWuUDriQJKbBIZqFwRgyZjcwIijnM3zZrCyZo KaVIyaDC6bFKFtE6lwmWYmOQRrHDSpA4lnFsWbjX4mzFjyDPomagWlHIp4ICN5FBBwzl3= CLINICAL DATA (test code = 3355) e0mrpVZfBNIklICqNiQdBKIeDBArl6xtFBQmrBEhCiJaJjVrAuFuPficmRQzZIOySrQhc5rmg718yOIa f6toHYVyYqQ1pXRiJAClxWGdT964q3pgy6yawfKgeGT2XTJxVVY2SGcpbzTgshZ2PQhhmZXeSbF2HNgf uhEyCScbkfZverGiHcu1SYKoO439PNT5xEmdd2piAY Q1FCMtXBNuKxYzVf8wwWXiP064PFIlKXZCJKAupMe6USZbziIcolWktNDTo379X109o5ajMIMbgeTidR vHhzdvd8stR638DZQccACeiePgRrKfEUPtdLAuwED4SDHhJI1wzhtkElBvVV9uoonfMfTpYQ2kvvu3Rv QkAS2ghhyyLqSgOGphVQGiicbfRBYtn0UqkiljCG2o D5Maa6J3oY8uaFWqTQSdcBIjToPnCLAchx3ivNIdEXfwr2EaDCZ0vbE8iGDkmGPqXIAzHL92Hcrqg0Ij JjozBXR7QRGmxyTra2Byf6ioVaNsonQoZ1rdD6BhQWVuTJXtVUXrQcJmenKdk3Kjb4LnsWXtxQu5g8qw PXEiKTRjeArbs6vxCXS0PTCdM5I7dHWqj5orKQslIJ YjcDO4fqvrNEudXDZtuoY9cmjjGOtcOFLygFP9gchhJIvdTCUoBsE3zrgiWMgrMBWjFHT4UUjqi469UX Q1BTjmGgipQOleHIFizuTjqhUjiBuyYSRkKNNmBIzzKVVdYLlkJVUlIPFbVbGnpUeheMdbdK9bZnCrVf HlOGblAR8cKHArG8dmhKGfISWbPAFoX9eaYaOwuL1nuWbmZPurrbZzNTokiG2apTqiwKArlQMzzH== SPECIMEN SOURCE (test code = 3377) h5ffuSPsRLIoiKOyTfJuQCRkPYTtq7ywWHTrdNMvBtPrLeSbSoDiPsxglMZhNTBpKbOav3ouy489cBFt i7dhRPDyEpT8jSXqBDGswWIsX817MODcMMndc0lot4FgZKQopKVfs8L6ETCBhrshwGi3gMjdZ79zz1Z4 JgbgP3lyCQMaTFoxMUTbBWgqpVGfPFU0QTDdKWO3GJ ozbwBcflA8XKdkyRLnCtQ4NYk2h1vyjWtiLUKfCEV4b7krDVuepbRcOH6svc2dkFb5s6guszUwUKYaNH KjbPIOVXFdJ8IdvJizPo7axFv5gTtfDpayVTF0Foo5HC2nhl77wsc7cDwnROJwbadjJfV4QXfxXJLjxq hqUGq7VHnzOODawRmoWTzcBUOxozwaIIuxLZZklCfx IJsgTTBhTgavSFaiIEZdDLZ8CEbtc824MCG1BSgpi3eec5vddZKpQrb2GLJeCnNeWzgkZGcaa2Baf7gl RLRcyt2yQDQ5nODesJaao5P1kQLxMIPelQQjnwQaHRDuZeT0TMlaGV2woz04OSOeNOC1sf0xoWKevLzy uwFqvJMjIWrhF2EgSRPrs138ZGQdJ6TyPZRbt0K3rp AoBjSmNIVtbVU3ztD5RYZeAFj1uPPzxsB1srDymMRgU0oyeG81DfHqjPNwK3HglY48GjFfyPZjS0GpvN 89EoGkzAZyK0GevE93JpMflNMbSOXgsWOmFv0pjASadHGcj3UgnQJjYRrpA29tb385QIKeafQhB1bzwM FpblxwbGFpblxmMFxmczIwXHFsXHBsYWluXGYwXGZz RbUfqDwqmX9hPzDbNnDyXVBQCXxXZQUUCSAESyLJO3OTJIuAAchyAfEHAXQtot7= GROSS DESCRIPTION (test code = 3366) f3uduNHjDNPmvDXyPcRaUHVdSYPcv0imXXJjcNQnWhXvDkKlUbDzEnwbgWOpKLCqTzEsc8wtm404yFKm r6zzUMRjUgD4mQMaZOIybTGbA556DGGlSQlnv4iag7IoXEUxyOJxo5Y5ZFSSfskjpBg2lUuyB71me0Y2 OaftK6pxZOIeBBJbR5TxTW7dSMYvXuu0PTX9TFF0EN MhBZKyJ2SbTT0rZXVcsCIcUDv3t8fefYqvUKRjPAA0a8tqGSbrndTpHV8eml4uuWo6e5kkbqKdNSOoCK ZxbPGDZDOmV0TmrSrcIu5ufIk3cUhmJyvfQPN7Afo5CU8wfy99fyv3cKkiLBAatyhxSrA5BIewEMTkyk ymBHn4HIkwIPVoqGdoISneVPShtxgxNUbdQOOqzRkx OWbdCCBiKrtcFKupTZYuYVK7JWdbn838KYG2WFrza4efl2xnmKXsZbc4ZMIjXaJeBsnmWXcvj7Jpf5lm JCSpds6sSKS5dHJmhZzkf7V8jPEbDIDjaXXibtZlEMHlZwI9BUjyXH3ohx81IEIcAJT6hw6xcXXlgGjh agVtpHCyUDqvO5GrDMVcn861YWYxA6UmVBKtr7H8ki FnQdZaDCNycXS1bzI6YZCcDRh0gXAessI3ofNpaLUhR9ydaP70JsWzxAZzY1GprF37VmJyoWHdB7ZiuS 68NcHzwCAxK1MqlN06CtDslRZsIADztGLqZw4hwTVhnQPgg2XjgZUdGNtvH75oc188OOPwblThG0kxgP KvjmawnRCtyzepEOqckbX9VESxTAClLYfwGJHpTVRa XwTafQCyCjKhAxPyfWcpwAlgQFmzBiJhBUSoFXioZ5vjGuJjBaPfNzDiObNegHLlvW3mC1m4i0VdD9il pmMiZwO3LVY9iL6buGwgi1fdGNYvS32wwUQpdINdMfAlPsK9QyJhnQLgZIBeO5AccnNqBhMoCwV5AjIk cGFyfQ== STATEMENT OF ADEQUACY (test code = 2757) Satisfactory Gross assessment was performed at (test code = 2777) [facility], Department of Pathology, [address] [place] [address], Technical component was performed at (test code = 2778 ) [facility], Department of Pathology, [address] [place] [address], Professional component was performed at (test code = 2 779) [facility], Department of Pathology, [address] [place] [address], [facility]2020-06-17 17:53:00Medical Cytology Report Case: [id number] Authorizing Provider: Rashaun Cunningham MD Collected: 04/24/2020 02:36 PM Ordering Location: [place] [address] ICU Received: 04/24/2020 03:19 PM Pathologist: Tita Parkinson MD Specimen: Lung, Right Upper Lobe RIGHT UPPER LOBE LUNG BAL (CYTOSPINS): - NEGATIVE FOR MALIGNANCY Signing Pathologist Direct Phone Line: [phone] signed by Tita Parkinson MD on 04/25/2020 at 5:53 [id number] UPPER LOBE LUNG BAL27 mls in cytorich red; 4 cytospinsCollected: [id number]: [id number], Department of Pathology, [address] [place] [address], [facility], [address] [place] [address], [facility], Department of [facility], [address] [place] [address], ACW, CHEST, 1 VIEW, NON [id number] 09:09:00Reason for exam:->hx of hemoptysisFINAL REPORT CLINICAL HISTORY: hx of hemoptysis TECHNIQUE: 1 view of the chest. COMPARISON: 04/22/2020 IMPRESSION: There is increased left lower lung atelectasis. There is blunting of the left costophrenic angle. The right lung appears relatively well-aerated. The cardiomediastinal silhouette is within normal limits for size. The visualized bones appear intact. Signed: Apolinar Cortés MDReport Verified Date/Time: 04/25/2020 09:09:25 Reading Location: [facility] Reading Room chest 1 view portable / [id number] 09:09:00Interface, External Ris In - 04/25/2020 9:11 AM CDTFINAL REPORT CLINICAL HISTORY: hx of hemoptysis TECHNIQUE: 1 view of the chest. COMPARISON: 04/22/2020 IMPRESSION: There is increased left lower lung atelectasis. There is blunting of the left costophrenic angle. The right lung appears relatively well-aerated. The cardiomediastinal silhouette is within normal limits for size. The visualized bones appear intact. Signed: Apolinar Cortés MDReport Verified Date/Time: 04/25/2020 09:09:25 Reading Location: [facility] Reading Room [facility] HIV-1/2 [id number] 05:07:00* Test Item Value Reference Range Interpretation Comments HIV-1 Antigen with HIV 1&2 Antibody (test code = 65047-7) No nreactive Nonreactive EFFIE (test code = EFFIE) Repair Order Clerk ID - PIAYA L Lab Interpretation (test code = 00261-0) Normal [facility] ANTIGEN WITH HIV-1/2 [id number] 05:07:00* Test Item Value Reference Range Interpretation Comments HIV-1 ANTIGEN WITH HIV 1\T\2 ANTIBODY (2) (BEAKER) ( st code = 2586) Nonreactive Nonreactive Repair Order Clerk ID - PIAYA LBasic Metabolic [id number] 04:47:00* Test Item Value Reference Range Interpretation Comments Sodium (test code = 2951-2) 132 meq/L 136-145 L Potassium (test code = 2823-3) 5.0 meq/L 3.5-5.1 Specimen slightly hemolyzed Chloride (test code = 2075-0) 103 meq/L 98-107 CO2 (test code = 8-9) 19 meq/L 22-29 L BUN (test code = 3094-0) 15 mg/dL 7-21 Creatinine (test code = 2160-0) 1.13 mg/dL 0.57-1.25 Specimen slightly hemolyzed Glucose (test code = 2345-7) 191 mg/dL 70-105 H Calcium (test code = 35402-3) 9.0 mg/dL 8.4-10.2 EGFR (test code = 65372-4) 72 mL/min/1.73 sq m ESTIMATED GFR IS NOT ACCURATE CREATININE CLEARANCE IN PREDICTING GLOMERULAR FILTRATION RATE. ESTIMATED GFR IS NOT APPLICABLE FOR DIALYSIS PATIENTS. EFFIE (test code = EFFIE) Repair Order Clerk ID - PIAYA L Lab Interpretation (test code = 73310-7) Abnormal [facility]2020-[facility] 04:47:00* Test Item Value Reference Range Interpretation Comments Magnesium (test code = 51509-4) 2.1 mg/dL 1.6-2.6 Specimen slightly hemolyzed EFFIE (test code = EFFIE) Repair Order Clerk ID - PIAYA L Lab Interpretation (test code = 45203-0) Normal [facility]2020-06-17 04:47:00* Test Item Value Reference Range Interpretation Comments Phosphorus (test code = 2777-1) 2.7 mg/dL 2.3-4.7 Specimen slightly hemolyzed EFFIE (test code = EFFIE) Repair Order Clerk ID - PIAYA L Lab Interpretation (test code = 85506-3) Normal [facility]2020-06-17 04:47:00* Test Item Value Reference Range Interpretation Comments MAGNESIUM (BEAKER) (test code = 627) 2.1 mg/dL 1.6-2.6 Specimen slightly hemolyzed Repair Order Clerk ID - PIAYA [id number] 04:47:00* Test Item Value Reference Range Interpretation Comments PHOSPHORUS (BEAKER) (test code = 604) 2.7 mg/dL 2.3-4.7 Specimen slightly hemolyzed Repair Order Clerk ID - PIAYA LBASIC METABOLIC [id number] 04:47:00* Test Item Value Reference Range Interpretation Comments SODIUM (BEAKER) (test code = 381) 132 meq/L 136-145 L POTASSIUM (BEAKER) (test code = 379) 5.0 meq/L 3.5-5.1 Specimen slightly hemolyzed CHLORIDE (BEAKER) (test code = 382) 103 meq/L 98-107 CO2 (BEAKER) (test code = 355) 19 meq/L 22-29 L BLOOD UREA NITROGEN (BEAKER) (test code = 354) 15 mg/dL 7-21 CREATININE (BEAKER) (test code = 358) 1.13 mg/dL 0.57-1.25 Specimen slightly hemolyzed GLUCOSE RANDOM (BEAKER) (test code = 652) 191 mg/dL 70-105 H CALCIUM (BEAKER) (test code = 697) 9.0 mg/dL 8.4-10.2 EGFR (BEAKER) (test code = 1092) 72 mL/min/1.73 sq m ESTIMATED GFR IS NOT ACCURATE CREATININE CLEARANCE IN PREDICTING GLOMERULAR FILTRATION RATE. ESTIMATED GFR IS NOT APPLICABLE FOR DIALYSIS PATIENTS. Repair Order Clerk ID - LEOBARDO [facility] with platelet count + automated [id number] 03:16:00 * Test Item Value Reference Range Interpretation Comments WBC (test code = 6690-2) 13.3 3.5- 10.5 K/L H RBC (test code = 789-8) 6.75 4.63- 6.08 M/L H MCHC (test code = 786-4) 32.5 32.3- 36.5 GM/DL H Hematocrit (test code = 4544-3) 57.2 % 40.1-51 H MCV (test code = 787-2) 84.7 fL 79-92.2 MCH (test code = 785-6) 27.6 pg 25.7-32.2 RDW (test code = 788-0) 17.0 % 11.6-14.4 H Platelets (test code = 777-3) 258 150- 450 K/CU MM MPV (test code = 35958-8) 11.3 fL 9.4-12.4 nRBC (test code = 413) 0 0- 0 /100 WBC % Neutros (test code = 429) 82 % % Lymphs (test code = 430) 12 % % Monos (test code = 431) 5 % % Eos (test code = 432) 0 % % Baso (test code = 437) 0 % # Neutros (test code = 670) 10.95 1.78- 5.38 K/L H # Lymphs (test code = 414) 1.58 1.32- 3.57 K/L # Monos (test code = 415) 0.61 0.30- 0.82 K/L # Eos (test code = 416) 0.01 0.04- 0.54 K/L L # Baso (test code = 417) 0.05 0.01- 0.08 K/L Immature Granulocytes-Relative (test code = 2801) 1 % 0-1 Lab Interpretation (test code = 20356-9) Abnormal [facility] W/PLT COUNT & AUTO [id number] 03:16:00* Test Item Value Reference Range Interpretation Comments WHITE BLOOD CELL COUNT (BEAKER) (test code = 775) 13.3 K/ L 3.5- 10.5 H RED BLOOD CELL COUNT (BEAKER) (test code = 761) 6.75 M/ L 4.63-6 .08 H HEMOGLOBIN (BEAKER) (test code = 410) 18.6 GM/DL 13.7-17.5 H HEMATOCRIT (BEAKER) (test code = 411) 57.2 % 40.1-51.0 H MEAN CORPUSCULAR VOLUME (BEAKER) (test code = 753) 84.7 fL 79. 0-92.2 MEAN CORPUSCULAR HEMOGLOBIN (BEAKER) (test code = 751) 27.6 pg 25.7-32.2 MEAN CORPUSCULAR HEMOGLOBIN CONC (BEAKER) (test code = 752) 32.5 GM/DL 32.3-36.5 RED CELL DISTRIBUTION WIDTH (BEAKER) (test code = 412) 17.0 % 11.6-14.4 H PLATELET COUNT (BEAKER) (test code = 756) 258 K/CU MM 150-450 MEAN PLATELET VOLUME (BEAKER) (test code = 754) 11.3 fL 9.4-12 .4 NUCLEATED RED BLOOD CELLS (BEAKER) (test code = 413) 0 /100 WBC 0 -0 NEUTROPHILS RELATIVE PERCENT (BEAKER) (test code = 429) 82 % LYMPHOCYTES RELATIVE PERCENT (BEAKER) (test code = 430) 12 % MONOCYTES RELATIVE PERCENT (BEAKER) (test code = 431) 5 % EOSINOPHILS RELATIVE PERCENT (BEAKER) (test code = 432) 0 % BASOPHILS RELATIVE PERCENT (BEAKER) (test code = 437) 0 % NEUTROPHILS ABSOLUTE COUNT (BEAKER) (test code = 670) 10.95 K/ L 1.78-5.38 H LYMPHOCYTES ABSOLUTE COUNT (BEAKER) (test code = 414) 1.58 K/ L 1.32-3.57 MONOCYTES ABSOLUTE COUNT (BEAKER) (test code = 415) 0.61 K/ L 0. 30-0.82 EOSINOPHILS ABSOLUTE COUNT (BEAKER) (test code = 416) 0.01 K/ L 0.04-0.54 L BASOPHILS ABSOLUTE COUNT (BEAKER) (test code = 417) 0.05 K/ L 0. 01-0.08 IMMATURE GRANULOCYTES-RELATIVE PERCENT (BEAKER) (test code = 2801) 1 % 0-1 Body fluid cell count with [id number] 17:27:00* Test Item Value Reference Range Interpretation Comments Appearance (test code = 9335-1) Turbid Clear A Color (test code = 6824-7) [place] Colorless, Straw A RBCs (test code = 19061-9) 49571 <=1 /cu mm H Adjusted WBC Count (test code = 83843-9) 105 <=5 /cu mm H Lining Cells (test code = 83437-0) 0 <=1 /cu mm % Segs (test code = 92696-0) 71 % % Lymphs (test code = 31501-9) 8 % % Monos (test code = 73380-8) 21 % % Eos (test code = 75763-0) 0 % % Baso (test code = 92764-2) 0 % Container Body Fluid (test code = 2873) EDTA Tube Lab Interpretation (test code = 24074-4) [facility] [id number] 17:27:00* Test Item Value Reference Range Interpretation Comments APPEARANCE FLUID (BEAKER) (test code = 510) [place]urb[place] Clear A COLOR FLUID (BEAKER) (test code = 511) [place] Colorless, Stra w A RBC FLUID (BEAKER) (test code = 513) 55304 /cu mm <=1 H ADJUSTED WBC FLUID (BEAKER) (test code = 1691) 105 /cu mm <=5 H LINING CELLS (BEAKER) (test code = 1590) 0 /cu mm <=1 NEUTROPHILS FLUID (BEAKER) (test code = 1656) 71 % LYMPHS FLUID (BEAKER) (test code = 488) 8 % MONO/MACROPHAGE FLUID (BEAKER) (test code = 489) 21 % EOSINOPHILS FLUID (BEAKER) (test code = 491) 0 % BASO FLUID (BEAKER) (test code = 492) 0 % CONTAINER BODY FLUID (BEAKER) (test code = 2873) EDTA Tube CYTOLOGY [id number] 17:00:00* Test Item Value Reference Range Interpretation Comments Cytology (test code = 2629) See Separate Report [facility] [id number] 17:00:00* Test Item Value Reference Range Interpretation Comments CYTOLOGY RESULT POINTER (BEAKER) (test code = 2629) See Separate Re port Prothrombin time/[id number] 09:56:00* Test Item Value Reference Range Interpretation Comments Protime (test code = 5902-2) 14.1 11.9- 14.2 seconds INR (test code = 6301-6) 1.1 <=5.9 EFFIE (test code = EFFIE) Effective 04/06/2019: PT Refe rence Range ChangeNew: 11.9- 14.2 Previous: 11.7-14.7 RECOMMENDED COUMADIN/WARFARIN INR THERAPY RANGESSTANDARD DOSE: 2.0-3.0 Includes: PROPHYLAXIS for venous thrombosis, sys temic embolization; TREATMENT for venous thrombosis and/or pulmonary embolus.HIGH RISK: Target INR is 2.5-3.5 for patients wiht mechanical heart valves. Lab Interpretation (test code = 12045-9) Normal [facility] Rosa[facility]HROM[facility] TIME/[id number] 09:56:00* Test Item Value Reference Range Interpretation Comments PROTIME (BEAKER) (test code = 759) 14.1 seconds 11.9-14.2 INR (BEAKER) (test code = 370) 1.1 <=5.9 Effective 04/06/2019: PT Reference Range ChangeNew: 11.9-14.2 Previous: 11.7-14. 7RECOMMENDED COUMADIN/WARFARIN INR THERAPY RANGESSTANDARD DOSE: 2.0-3.0 Include s: PROPHYLAXIS for venous thrombosis, systemic embolization; TREATMENT for venou s thrombosis and/or pulmonary embolus.HIGH RISK: Target INR is 2.5-3.5 for patie nts wiht mechanical heart valves.SARS-CoV2/RT-PCR (Symptomatic ONLY)2020-04-24 09:50:00* Test Item Value Reference Range Interpretation Comments SARS-COV2/RT-PCR (test code = 16656-1) Not Detected Not Detected, N egative SARS-COV-2 PERFORMING LAB (test code = 36494-1) [facility] EFFIE (test code = EFFIE) Negative results do not prec lude SARS-CoV-2 infection and should not be used as the sole basis for patient management decisions. Negative results must be combined with clinical observations, patient history, and epidemiological information. A false negative result may occur if a specimen is improperly collected, transported or handled. The limit of detection for this assay is 250 copies/mL. This SARS CoV-2 test is a rapid, real-time RT-PCR test intended for the qualitative detection of nucleic acid from SARS-CoV-2 in a nasopharyngeal swab specimen collected from individuals suspected of COVID-19 by their healthcare provider. This test has not been Food and Drug Administration (FDA) cleared or approved and has been authorized by FDA under an Emergency Use Authorization (EUA). This EUA will be effective until the declaration that circumstances exist justifying the authorization of the emergency use of in vitro diagnostic tests for detection and/or diagnosis of COVID-19 is terminated under Section 564(b)(2) of the Act or the EUA is revoked under Section 564(g) of the Act. Fact Sheet for Healthcare Providers:https://www.[facility]/Documents/Xpert%20Xpress%20SARS%20CoV-2/Fact%2 0Sheets/302-3802%49MTLY-FMT-8%20HEALTHCARE%20PROVIDERS%20FACT%20SHEET.pdf Fact Sheet for Healthcare Patients:https://www.[facility]/Documents/Xpert%20Xpress%20SARS%20CoV-2/Fact%20 Sheets/302-3801%84KONW-ALM-5%20PATIENT%20FACT%20SHEET.pdf Performing Laboratory:[facility] [place] [address] [facility])2020-04-24 09:50:00* Test Item Value Reference Range Interpretation Comments SARS-COV2/RT-PCR (test code = 8977669) Not Detected Not Detected, N egative SARS-COV-2 PERFORMING LAB (test code = 8315564) [facility] Negative results do not preclude SARS-CoV-2 infection and should not be used as the sole basis for patient management decisions. Negative results must be combin ed with clinical observations, patient history, and epidemiological information. A false negative result may occur if a specimen is improperly collected, transp orted or handled.The limit of detection for this assay is 250 copies/mL.This [facility] CoV-2 test is a rapid, real-time RT-PCR test intended for the qualitative dete ction of nucleic acid from SARS-CoV-2 in a nasopharyngeal swab specimen collecte d from individuals suspected of COVID-19 by their healthcare provider.This test has not been Food and Drug Administration (FDA) cleared or approved and has been authorized by FDA under an Emergency Use Authorization (EUA). This EUA will be effective until the declaration that circumstances exist justifying the authoriz ation of the emergency use of in vitro diagnostic tests for detection and/or francis gnosis of COVID-19 is terminated under Section 564(b)(2) of the Act or the EUA i s revoked under Section 564(g) of the Act.Fact Sheet for Healthcare Providers:ht tps://www.[facility]/Documents/Xpert%20Xpress%20SARS%20CoV-2/Fact%20Sheets/302- 3802%22RAEQ-USU-0%20HEALTHCARE%20PROVIDERS%20FACT%20SHEET.pdfFact Sheet for Heal thcare Patients:https://www.[facility]/Documents/Xpert%20Xpress%20SARS%20CoV-2/ Fact%20Sheets/302-3801%51XGGU-SSU-6%20PATIENT%20FACT%20SHEET.pdfPerforming Labor atory:[facility] [place] [address] [id number] 04:13:00* Test Item Value Reference Range Interpretation Comments PHOSPHORUS (BEAKER) (test code = 604) 3.7 mg/dL 2.3-4.7 Repair Order Clerk ID - MOON [id number] 04:13:00* Test Item Value Reference Range Interpretation Comments MAGNESIUM (BEAKER) (test code = 627) 1.8 mg/dL 1.6-2.6 Repair Order Clerk ID - MOON WBASIC METABOLIC [id number] 04:13:00* Test Item Value Reference Range Interpretation Comments SODIUM (BEAKER) (test code = 381) 135 meq/L 136-145 L POTASSIUM (BEAKER) (test code = 379) 4.3 meq/L 3.5-5.1 CHLORIDE (BEAKER) (test code = 382) 103 meq/L 98-107 CO2 (BEAKER) (test code = 355) 21 meq/L 22-29 L BLOOD UREA NITROGEN (BEAKER) (test code = 354) 9 mg/dL 7-21 CREATININE (BEAKER) (test code = 358) 0.87 mg/dL 0.57-1.25 GLUCOSE RANDOM (BEAKER) (test code = 652) 106 mg/dL 70-105 H CALCIUM (BEAKER) (test code = 697) 9.3 mg/dL 8.4-10.2 EGFR (BEAKER) (test code = 1092) 98 mL/min/1.73 sq m ESTIMATED GFR IS NOT ACCURATE CREATININE CLEARANCE IN PREDICTING GLOMERULAR FILTRATION RATE. ESTIMATED GFR IS NOT APPLICABLE FOR DIALYSIS PATIENTS. Repair Order Clerk TAMICA MUSTAFA WCBC W/PLT COUNT & AUTO [id number] 04:01:00* Test Item Value Reference Range Interpretation Comments WHITE BLOOD CELL COUNT (BEAKER) (test code = 775) 11.7 K/ L 3.5- 10.5 H RED BLOOD CELL COUNT (BEAKER) (test code = 761) 6.99 M/ L 4.63-6 .08 H HEMOGLOBIN (BEAKER) (test code = 410) 18.9 GM/DL 13.7-17.5 H HEMATOCRIT (BEAKER) (test code = 411) 59.2 % 40.1-51.0 H MEAN CORPUSCULAR VOLUME (BEAKER) (test code = 753) 84.7 fL 79. 0-92.2 MEAN CORPUSCULAR HEMOGLOBIN (BEAKER) (test code = 751) 27.0 pg 25.7-32.2 MEAN CORPUSCULAR HEMOGLOBIN CONC (BEAKER) (test code = 752) 31.9 GM/DL 32.3-36.5 L RED CELL DISTRIBUTION WIDTH (BEAKER) (test code = 412) 17.2 % 11.6-14.4 H PLATELET COUNT (BEAKER) (test code = 756) 225 K/CU MM 150-450 MEAN PLATELET VOLUME (BEAKER) (test code = 754) 11.3 fL 9.4-12 .4 NUCLEATED RED BLOOD CELLS (BEAKER) (test code = 413) 0 /100 WBC 0 -0 NEUTROPHILS RELATIVE PERCENT (BEAKER) (test code = 429) 63 % LYMPHOCYTES RELATIVE PERCENT (BEAKER) (test code = 430) 21 % MONOCYTES RELATIVE PERCENT (BEAKER) (test code = 431) 6 % EOSINOPHILS RELATIVE PERCENT (BEAKER) (test code = 432) 9 % BASOPHILS RELATIVE PERCENT (BEAKER) (test code = 437) 1 % NEUTROPHILS ABSOLUTE COUNT (BEAKER) (test code = 670) 7.33 K/ L 1.78-5.38 H LYMPHOCYTES ABSOLUTE COUNT (BEAKER) (test code = 414) 2.48 K/ L 1.32-3.57 MONOCYTES ABSOLUTE COUNT (BEAKER) (test code = 415) 0.65 K/ L 0. 30-0.82 EOSINOPHILS ABSOLUTE COUNT (BEAKER) (test code = 416) 1.06 K/ L 0.04-0.54 H BASOPHILS ABSOLUTE COUNT (BEAKER) (test code = 417) 0.12 K/ L 0. 01-0.08 H IMMATURE GRANULOCYTES-RELATIVE PERCENT (BEAKER) (test code = 2801) 1 % 0-1 CT, CHEST WITH IV CONTRAST- PE TEST [id number] 00:05:00FINAL REPORT Comparison: CTPA from outside institution dated 04/21/2020. Indication: 39-year-old male with acute chest pain, hypoxia, and shortness of breath clinically suspicious for acute pulmonary embolism. Techniq ue: Postcontrast axial images of the chest were obtained from above the arch l evel to the lower chest at maximum enhancement of the pulmonary artery. This exa m was performed according to the departmental dose optimization program which in cludes automated exposure control, adjustment of the mA and/or kV according to t he patient size, and/or use of an iterative reconstruction technique. Findings: Vascular: The study is diagnostic to the level of the proximal segmental, motion artifact limits evaluation of distal pulmonary arteries. pulmonary arteries. Pulmonary arteries: No evidence of acute or chronic pulmonary embolism. Specif ically, the pulmonary arteries are widely patent, without evidence for filling d efect or vascular cutoff. The pulmonary arteries are normal in size. Thoracic ao rta: Normal in size. No acute aortic pathology. The left vertebral artery arises from the arch. The origins of the arch branch vessels are all widely patent. Pu lmonary veins: Normal configuration. Coronary arteries: Normal configuration wit h no significant atherosclerotic calcifications. Systemic veins: No identified thrombus. Chest: Lungs/pleura: Again seen is a 4 mm pulmonary nodule in the rig ht lateral lower lobe which is adjacent to a distal branch of the right lower lo be pulmonary vein. Consolidative airspace opacities in the bilateral right great er than left lower lungs, may be in part related to discoid atelectasis however aspiration versus developing pneumonia in the right lower lobe can have this bimal earance. No pleural effusion or pneumothorax. Mediastinum/meaghan: No pathologicall y enlarged lymph nodes. Esophagus is normal in caliber. Coarse calcification in the right thyroid lobe otherwise the Thyroid gland is unremarkable. Heart: The cardiac chambers demonstrate normal atrioventricular and ventriculoarterial con cordance, and systemic and pulmonary venous return. The cardiac chamber sizes ar e normal. No pericardial effusion. No thrombus identified within the cardiac ch ambers. Axillae/subcutaneous soft tissues: No pathologically enlarged axillary l ymph nodes. No suspicious subcutaneous nodules or fluid collections. Visualized upper abdomen: Visualized complex bilateral heterogeneous adrenal lesions measur ing up to 6.9 cm on the left and 5.2 cm on the right. Hypodensity of the hepatic parenchyma may be related to timing of contrast versus hepatic steatosis . Oth erwise visualized abdomen is unremarkable. Bones: No aggressive osseous lesions or acute fractures. Multilevel degenerative changes in thoracic spine. Impressi on: No evidence for acute or chronic pulmonary embolism however limited evaluati on of the distal pulmonary artery secondary to motion artifact. Nonspecific 4 mm pulmonary nodule in the right lateral lower lobe adjacent to a distal branch of the right lower lobe pulmonary vein. Heterogeneous airspace opacity in the right greater than left lower lungs may be in part related to atelectasis however as piration and developing infection are differential concern. Bilateral heterogene ous adrenal lesions, incompletely visualized and characterized on this examinati on. Recommend comparison study prior if available versus adrenal protocol cross -sectional imaging on a nonemergent basis. Signed: Sridhar Cornejo Verified Date/Time: 04/24/2020 00:05:46 chest for pulmonary [id number] 00:05:00Interface, External Ris In - 04/24/2020 12:08 AM CDTFINAL REPORT Comparison: CTPA from outside institution dated [...] pathologically enlarged axillary lymph nodes. No suspicious meza bcutaneous nodules or fluid collections. Visualized upper abdomen: Visualized co mplex bilateral heterogeneous adrenal lesions measuring up to 6.9 cm on the left and 5.2 cm on the right. Hypodensity of the hepatic parenchyma may be related to timing of contrast versus hepatic steatosis . Otherwise visualized abdomen is unremarkable. Bones: No aggressive osseous lesions or acute fractures. Multilev el degenerative changes in thoracic spine. Impression: No evidence for acute or chronic pulmonary embolism however limited evaluation of the distal pulmonary a rtery secondary to motion artifact. Nonspecific 4 mm pulmonary nodule in the rig ht lateral lower lobe adjacent to a distal branch of the right lower lobe pulmon dimitris vein. Heterogeneous airspace opacity in the right greater than left lower odette ngs may be in part related to atelectasis however aspiration and developing infe ction are differential concern. Bilateral heterogeneous adrenal lesions, incompl etely visualized and characterized on this examination. Recommend comparison st udy prior if available versus adrenal protocol cross-sectional imaging on a none mergent basis. Signed: Sridhar Cornejo MDReport Verified Date/Time: 020 00:05:46 20 12:05 AM [facility]OS[facility]2020-06-15 05:40:00* Test Item Value Reference Range Interpretation Comments PHOSPHORUS (BEAKER) (test code = 604) 3.1 mg/dL 2.3-4.7 Repair Order Clerk ID - PIAYA [id number] 05:40:00* Test Item Value Reference Range Interpretation Comments MAGNESIUM (BEAKER) (test code = 627) 1.6 mg/dL 1.6-2.6 Repair Order Clerk ID - PIAYA LBASIC METABOLIC [id number] 05:40:00* Test Item Value Reference Range Interpretation Comments SODIUM (BEAKER) (test code = 381) 138 meq/L 136-145 POTASSIUM (BEAKER) (test code = 379) 4.0 meq/L 3.5-5.1 CHLORIDE (BEAKER) (test code = 382) 107 meq/L 98-107 CO2 (BEAKER) (test code = 355) 22 meq/L 22-29 BLOOD UREA NITROGEN (BEAKER) (test code = 354) 8 mg/dL 7-21 CREATININE (BEAKER) (test code = 358) 0.85 mg/dL 0.57-1.25 GLUCOSE RANDOM (BEAKER) (test code = 652) 110 mg/dL 70-105 H CALCIUM (BEAKER) (test code = 697) 8.7 mg/dL 8.4-10.2 EGFR (BEAKER) (test code = 1092) 100 mL/min/1.73 sq m ESTIMATED GFR IS NOT ACCURATE CREATININE CLEARANCE IN PREDICTING GLOMERULAR FILTRATION RATE. ESTIMATED GFR IS NOT APPLICABLE FOR DIALYSIS PATIENTS. Repair Order Clerk ID - PIAYA LCBC W/PLT COUNT & AUTO [id number] 04:40:00* Test Item Value Reference Range Interpretation Comments WHITE BLOOD CELL COUNT (BEAKER) (test code = 775) 11.1 K/ L 3.5- 10.5 H RED BLOOD CELL COUNT (BEAKER) (test code = 761) 6.53 M/ L 4.63-6 .08 H HEMOGLOBIN (BEAKER) (test code = 410) 17.9 GM/DL 13.7-17.5 H HEMATOCRIT (BEAKER) (test code = 411) 55.0 % 40.1-51.0 H MEAN CORPUSCULAR VOLUME (BEAKER) (test code = 753) 84.2 fL 79. 0-92.2 MEAN CORPUSCULAR HEMOGLOBIN (BEAKER) (test code = 751) 27.4 pg 25.7-32.2 MEAN CORPUSCULAR HEMOGLOBIN CONC (BEAKER) (test code = 752) 32.5 GM/DL 32.3-36.5 RED CELL DISTRIBUTION WIDTH (BEAKER) (test code = 412) 16.8 % 11.6-14.4 H PLATELET COUNT (BEAKER) (test code = 756) 230 K/CU MM 150-450 MEAN PLATELET VOLUME (BEAKER) (test code = 754) 11.0 fL 9.4-12 .4 NUCLEATED RED BLOOD CELLS (BEAKER) (test code = 413) 0 /100 WBC 0 -0 NEUTROPHILS RELATIVE PERCENT (BEAKER) (test code = 429) 57 % LYMPHOCYTES RELATIVE PERCENT (BEAKER) (test code = 430) 23 % MONOCYTES RELATIVE PERCENT (BEAKER) (test code = 431) 6 % EOSINOPHILS RELATIVE PERCENT (BEAKER) (test code = 432) 13 % BASOPHILS RELATIVE PERCENT (BEAKER) (test code = 437) 1 % NEUTROPHILS ABSOLUTE COUNT (BEAKER) (test code = 670) 6.34 K/ L 1.78-5.38 H LYMPHOCYTES ABSOLUTE COUNT (BEAKER) (test code = 414) 2.52 K/ L 1.32-3.57 MONOCYTES ABSOLUTE COUNT (BEAKER) (test code = 415) 0.62 K/ L 0. 30-0.82 EOSINOPHILS ABSOLUTE COUNT (BEAKER) (test code = 416) 1.49 K/ L 0.04-0.54 H BASOPHILS ABSOLUTE COUNT (BEAKER) (test code = 417) 0.09 K/ L 0. 01-0.08 H IMMATURE GRANULOCYTES-RELATIVE PERCENT (BEAKER) (test code = 2801) 1 % 0-1 [id number] 23:34:00* Test Item Value Reference Range Interpretation Comments PHOSPHORUS (BEAKER) (test code = 604) 3.3 mg/dL 2.3-4.7 Repair Order Clerk ID - LEOBARDO [id number] 23:34:00* Test Item Value Reference Range Interpretation Comments MAGNESIUM (BEAKER) (test code = 627) 1.8 mg/dL 1.6-2.6 Repair Order Clerk ID - LEOBARDO LBASIC METABOLIC [id number] 23:34:00* Test Item Value Reference Range Interpretation Comments SODIUM (BEAKER) (test code = 381) 137 meq/L 136-145 POTASSIUM (BEAKER) (test code = 379) 3.9 meq/L 3.5-5.1 CHLORIDE (BEAKER) (test code = 382) 105 meq/L 98-107 CO2 (BEAKER) (test code = 355) 24 meq/L 22-29 BLOOD UREA NITROGEN (BEAKER) (test code = 354) 8 mg/dL 7-21 CREATININE (BEAKER) (test code = 358) 0.93 mg/dL 0.57-1.25 GLUCOSE RANDOM (BEAKER) (test code = 652) 90 mg/dL 70-105 CALCIUM (BEAKER) (test code = 697) 8.9 mg/dL 8.4-10.2 EGFR (BEAKER) (test code = 1092) 90 mL/min/1.73 sq m ESTIMATED GFR IS NOT ACCURATE CREATININE CLEARANCE IN PREDICTING GLOMERULAR FILTRATION RATE. ESTIMATED GFR IS NOT APPLICABLE FOR DIALYSIS PATIENTS. Repair Order Clerk ID Asha BOOTH LCBC W/PLT COUNT & AUTO [id number] 23:17:00* Test Item Value Reference Range Interpretation Comments WHITE BLOOD CELL COUNT (BEAKER) (test code = 775) 9.3 K/ L 3.5- 10.5 RED BLOOD CELL COUNT (BEAKER) (test code = 761) 6.67 M/ L 4.63-6 .08 H HEMOGLOBIN (BEAKER) (test code = 410) 18.3 GM/DL 13.7-17.5 H HEMATOCRIT (BEAKER) (test code = 411) 55.9 % 40.1-51.0 H MEAN CORPUSCULAR VOLUME (BEAKER) (test code = 753) 83.8 fL 79. 0-92.2 MEAN CORPUSCULAR HEMOGLOBIN (BEAKER) (test code = 751) 27.4 pg 25.7-32.2 MEAN CORPUSCULAR HEMOGLOBIN CONC (BEAKER) (test code = 752) 32.7 GM/DL 32.3-36.5 RED CELL DISTRIBUTION WIDTH (BEAKER) (test code = 412) 16.6 % 11.6-14.4 H PLATELET COUNT (BEAKER) (test code = 756) 228 K/CU MM 150-450 MEAN PLATELET VOLUME (BEAKER) (test code = 754) 10.9 fL 9.4-12 .4 NUCLEATED RED BLOOD CELLS (BEAKER) (test code = 413) 0 /100 WBC 0 -0 NEUTROPHILS RELATIVE PERCENT (BEAKER) (test code = 429) 53 % LYMPHOCYTES RELATIVE PERCENT (BEAKER) (test code = 430) 24 % MONOCYTES RELATIVE PERCENT (BEAKER) (test code = 431) 6 % EOSINOPHILS RELATIVE PERCENT (BEAKER) (test code = 432) 15 % BASOPHILS RELATIVE PERCENT (BEAKER) (test code = 437) 1 % NEUTROPHILS ABSOLUTE COUNT (BEAKER) (test code = 670) 4.89 K/ L 1.78-5.38 LYMPHOCYTES ABSOLUTE COUNT (BEAKER) (test code = 414) 2.27 K/ L 1.32-3.57 MONOCYTES ABSOLUTE COUNT (BEAKER) (test code = 415) 0.56 K/ L 0. 30-0.82 EOSINOPHILS ABSOLUTE COUNT (BEAKER) (test code = 416) 1.38 K/ L 0.04-0.54 H BASOPHILS ABSOLUTE COUNT (BEAKER) (test code = 417) 0.11 K/ L 0. 01-0.08 H IMMATURE GRANULOCYTES-RELATIVE PERCENT (BEAKER) (test code = 2801) 1 % 0-1 [id number] 23:10:00* Test Item Value Reference Range Interpretation Comments Fibrinogen (test code = 3255-7) 321 mg/dl 225-434 Lab Interpretation (test code = 18756-0) Normal [facility]2020-[facility] 23:10:00* Test Item Value Reference Range Interpretation Comments PTT (test code = 06264-7) 30.5 22.5- 36.0 seconds Lab Interpretation (test code = 68199-9) Normal [facility]IB[facility]EN2020-06-14 23:10:00* Test Item Value Reference Range Interpretation Comments FIBRINOGEN LEVEL (BEAKER) (test code = 658) 321 mg/dl 225-434 [id number] 23:10:00* Test Item Value Reference Range Interpretation Comments PARTIAL THROMBOPLASTIN TIME (BEAKER) (test code = 760) 30.5 seconds 22.5-36.0 RAD, CHEST, 1 VIEW, NON [id number] 23:10:00Reason for exam:->HemopysisFINAL REPORT RAD, CHEST, 1 VIEW, NON DEPT INDICATION: Hemopysis COMPARISON: None. FINDINGS: Portable frontal view of the chest. IMPRESSION: Support Lines: None. Lungs and pleura: Coarse interstitial lung markings and prominence of the pulmonary vasculature, nonspecific however can be seen in the setting of pulmonary vascular congestion mild interstitial pulmonary edema. M inimal bibasilar atelectasis. No lobar consolidation or pleural effusion. No pne umothorax.Heart and mediastinum: Within normal limits given technique. Additiona l findings: Osseous structures are grossly unremarkable. Signed: Debra Cornejo MDReport Verified Date/Time: 04/22/2020 23:10:37 HROMBIN TIME/INR 2020-04-22 23:09:00* Test Item Value Reference Range Interpretation Comments PROTIME (BEAKER) (test code = 759) 14.3 seconds 11.9-14.2 H INR (BEAKER) (test code = 370) 1.1 <=5.9 Effective 04/06/2019: PT Reference Range ChangeNew: 11.9-14.2 Previous: 11.7-14. 7RECOMMENDED COUMADIN/WARFARIN INR THERAPY RANGESSTANDARD DOSE: 2.0-3.0 Include s: PROPHYLAXIS for venous thrombosis, systemic embolization; TREATMENT for venou s thrombosis and/or pulmonary embolus.HIGH RISK: Target INR is 2.5-3.5 for patie nts wiht mechanical heart valves.Blood gas, [id number] 23:05:00* Test Item Value Reference Range Interpretation Comments pH, Tahir (test code = 2746-6) 7.39 7.32-7.42 pCO2, Tahir (test code = 755) 42 41- 51 mmHg pO2, Tahir (test code = 2705-2) 42 25- 40 mmHg H O2 Sat, Tahir (test code = 2711-0) 77.2 % 40-70 H HCO3, Tahir (test code = 41699-5) 25 mmol/L 21-29 Base Excess, Tahir (test code = 1927-3) -0.4 mmol/L -2-3 Patient Temperature (test code = 8310-5) 37.0 C FIO2 (test code = 1819) 100 % Lab Interpretation (test code = 13972-3) [facility] [id number] 23:05:00* Test Item Value Reference Range Interpretation Comments PH VENOUS (BEAKER) (test code = 701) 7.39 7.32-7.42 PCO2 VENOUS (BEAKER) (test code = 755) 42 mmHg 41-51 PO2 VENOUS (BEAKER) (test code = 702) 42 mmHg 25-40 H O2 SATURATION VENOUS (BEAKER) (test code = 703) 77.2 % 40.0-7 0.0 H HCO3 VENOUS (BEAKER) (test code = 705) 25 mmol/L 21-29 BASE EXCESS VENOUS (BEAKER) (test code = 704) -0.4 mmol/L -2.0-3.0 PATIENT TEMPERATURE (BEAKER) (test code = 1818) 37.0 C FIO2 (BEAKER) (test code = 1819) 100.0 % Platelet [id number] 23:01:00* Test Item Value Reference Range Interpretation Comments Platelets (test code = 777-3) 228 150- 450 K/CU MM EFFIE (test code = EFFIE) Repair Order Clerk ID - [id number] Lab Interpretation (test code = 60037-5) Normal [facility] HospitalPL[facility] [id number] 23:01:00* Test Item Value Reference Range Interpretation Comments PLATELET COUNT (BEAKER) (test code = 756) 228 K/CU MM 150-450 Repair Order Clerk ID - [id number] SINGLE (PORTABLE)2020-04-22 13:32:00 [facility] [address] [address] Patient Name: LOR MCCLENDON MR #: [id number] : 1980 Age/Sex: 39/M Req #: [id number] Adm Physician: Ordered by: DOLORES OATES MD Report #: [id number] Location: ER Room/Bed: Procedure: [id number] DX/CHEST SINGLE (PORTABLE) Exam Date: 04/22/20 Exam Time: 131 9 REPORT STATUS: Signed EXAMINAT ION: CHEST SINGLE (PORTABLE) INDICATION: HEMOPTYSIS 2 [id number] COMPARISON: None. Correlation with CT chest dated 04/21/20. FINDINGS: TUBES and LINES: None. LUNGS: Interval developme nt of patchy density in the right lung base medially which may represent devel oping pneumonia in the proper clinical setting. Mild left basilar subsegmental atelectasis. PLEURA: No pleural effusion or pneumothorax. HEART AND MED IASTINUM: The cardiomediastinal silhouette is unremarkable. BONES AND SOFT TISSUES: No acute osseous lesion. Soft tissues are unremarkable. U PPER ABDOMEN: No free air under the diaphragm. IMPRESSION: Interval development of patchy density in the right lung base medially which may repres ent developing pneumonia in the proper clinical setting. Signed by: Dr. Chichi Judd M.D. on 04/22/2020 1:33 PM Dictated By: BAILEY BRITTON MD, MD 1333 Trans cribed By: CRISTINA on 04/22/20 1333 COPY TO: DOLORES OATES MD Blood leukocytes automated count (number/volume)2020-04-22 12:40:00* Test Item Value Reference Range Interpretation Comments White Blood Count (test code = 6690-2) 9.67 4.8-10.8 [facility] (number/volume)2020-04-22 12:40:00* Test Item Value Reference Range Interpretation Comments Red Blood Count (test code = 789-8) 6.83 4.3-5.7 [facility]Blood hemoglobin measurement (moles/volume)2020-04-22 12:40:00* Test Item Value Reference Range Interpretation Comments Hemoglobin (test code = 95007-2) 18.5 14.0-18.0 [facility] HospitalAutomated blood hematocrit (volume fraction)2020-04-22 12:40:00* Test Item Value Reference Range Interpretation Comments Hematocrit (test code = 4544-3) 56.0 38.2-49.6 [facility] HospitalAutomated erythrocyte mean corpuscular fdrihk8693-72-80 12:40:00* Test Item Value Reference Range Interpretation Comments Mean Corpuscular Volume (test code = 787-2) 82.0 81-99 [facility] HospitalAutomated erythrocyte mean corpuscular hemoglobin (mass per erythrocyte)2020-04-22 12:40:00* Test Item Value Reference Range Interpretation Comments Mean Corpuscular Hemoglobin (test code = 785-6) 27.1 28-32 [facility]Automated erythrocyte mean corpuscular hemoglobin concentration measurement (mass/volume)2020-04-22 12:40:00* Test Item Value Reference Range Interpretation Comments Mean Corpuscular Hemoglobin Concent (test code = 786-4) 33.0 31-35 [facility] HospitalRDW DbvId-Vhk3351-35-14 12:40:00* Test Item Value Reference Range Interpretation Comments Red Cell Distribution Width (test code = 92187-2) 16.9 11.7 -14.4 [facility] HospitalAutomated blood platelet count (count/volume)2020-04-22 12:40:00* Test Item Value Reference Range Interpretation Comments Platelet Count (test code = 777-3) 231 140-360 [facility]Autom[facility] blood segmented neutrophil count as percentage of total fvwvtcjewc8198-76-20 12:40:00* Test Item Value Reference Range Interpretation Comments Neutrophils (%) (Auto) (test code = 61492-7) 55.5 38.7-80.0 [facility] HospitalAutomated blood lymphocyte count as percentage ot total xinblnucao4679-87-38 12:40:00* Test Item Value Reference Range Interpretation Comments Lymphocytes (%) (Auto) (test code = 736-9) 22.5 18.0-39.1 [facility] HospitalAutomated blood monocyte count as percentage of total hudnvxyrka0744-20-10 12:40:00* Test Item Value Reference Range Interpretation Comments Monocytes (%) (Auto) (test code = 5905-5) 5.4 4.4-11.3 [facility] HospitalAutomated blood eosinophil count as percentage of total wwkzfbmivf4112-70-39 12:40:00* Test Item Value Reference Range Interpretation Comments Eosinophils (%) (Auto) (test code = 713-8) 14.7 0.0-6.0 [facility] HospitalAutomated blood basophil count as percentage of total clmccnfadh6038-90-83 12:40:00* Test Item Value Reference Range Interpretation Comments Basophils (%) (Auto) (test code = 706-2) 1.2 0.0-1.0 [facility] HospitalFluoroscopic procedure less than one hour lhmnuhhy8942-75-25 12:40:00* Test Item Value Reference Range Interpretation Comments IM GRANULOCYTES % (test code = IM GRANULOCYTES %) 0.7 0.0- 1.0 [facility] HospitalAutomated blood neutrophil count 2020-04-22 12:40:00* Test Item Value Reference Range Interpretation Comments Neutrophils # (Auto) (test code = 751-8) 5.4 2.1-6.9 [facility] HospitalBlood lymphocytes count (number/volume) 2020-04-22 12:40:00* Test Item Value Reference Range Interpretation Comments Lymphocytes # (Auto) (test code = 48832-6) 2.2 1.0-3.2 [facility] HospitalBlood monocytes automated count (number/volume)2020-04-22 12:40:00* Test Item Value Reference Range Interpretation Comments Monocytes # (Auto) (test code = 742-7) 0.5 0.2-0.8 [facility] HospitalAutomated blood eosinophil count 2020-04-22 12:40:00* Test Item Value Reference Range Interpretation Comments Eosinophils # (Auto) (test code = 711-2) 1.4 0.0-0.4 [facility] HospitalAutomated blood basophil count (count/volume)2020-04-22 12:40:00* Test Item Value Reference Range Interpretation Comments Basophils # (Auto) (test code = 704-7) 0.1 0.0-0.1 [facility] HospitalFluoroscopic procedure less than one hour gnedwbww8309-64-29 12:40:00* Test Item Value Reference Range Interpretation Comments Absolute Immature Granulocyte (auto (david t code = Absolute Immature Granulocyte (auto) 0.07 0-0.1 [facility] HospitalCT CHEST [id number] 18:02:00 [facility] [address] [place] [address] Patient Name: LOR MCCLENDON MR #: [id number] : 1980 Age/Sex: 39/M Req #: [id number] Adm Physician: Ordered by: ANDRES BERRIOS DO Report #: [id number] Location: ER Room/Bed: Procedure: [id number] CT/CT CHES T W Exam Date: 04/21/20 Exam Time: 1710 REPORT STATUS: Signed EXAM: CT Chest WITH co ntrast 04/21/2020 5:10 PM INDICATION: Y hemoptysis, hypoxia PE 2 [id number] COMPARISON: None. TECHNIQUE: Spiral CT images of the sabra st were performed from the lung apices through the level of the adrenal glands after the IV contrast administration. Thin section reconstructions were obta ined with special concentration on the pulmonary arteries. IV CO NTRAST: 100 mL of Isovue-370 ORAL CONTRAST: None COMPLICATIONS: None RADIATION DOSE: Total DLP: 471.9 mGy*cm E stimated effective dose: (DLP x 0.015 x size factor) mSv CTDIvol has been reviewed. It is below the limits set by the Radiation Protocol Committee (RPC ). FINDINGS: LINES/ TUBES: None. PULMONARY ARTERIES: Subo ptimal evaluation of the pulmonary arteries due to poor contrast density (aver age 190 Hounsfield units). However, no filling defects are identified in the m ain, right or left pulmonary arteries. Segmental and subsegmental branches are nondiagnostic. The main pulmonary artery is normal in size, measuring 2.9 cm in diameter. LUNGS AND AIRWAYS: 4 mm hyperdense nodule in the superior se gment of the right lower lobe on series 5, image 53 appears to represent a sma ll arteriovenous malformation. Otherwise, lungs are clear. Mild central lower lobe predominant peribronchial wall thickening. Airways are patent. PLEU RA: The pleural spaces are clear. HEART AND MEDIASTINUM: The thyroid gland is normal. No mediastinal, hilar or axillary lymphadenopathy. The heart is n ormal in size. There is no pericardial effusion. The thoracic aorta is u nremarkable. UPPER ABDOMEN: Hepatic steatosis. 7.4 cm left adrenal heteroge neous mass has been partially included on this exam. 1.2 cm fat-containing les ion in the right adrenal gland consistent with lipoma. BONES: The visuali zed bony thorax is within normal limits. SOFT TISSUES: Unremarkable. I MPRESSION: No pulmonary embolism of the major pulmonary arteries. Distal segm ental and subsegmental branches are nondiagnostic due to poor contrast density . A 4 mm right lower lobe pulmonary nodule with CT characteristics of a sm all AVM, which can be the source of this patient's hemoptysis. Recommend pulmo nary consultation. No CT findings to suggest infection, suspicious nodule s, or alveolar hemorrhage. Complex 7.4 cm left adrenal mass, incompletely evaluated on this exam. No prior images are available for comparison. If not available, recommend further evaluation with MRI or CT abdomen with and withou t contrast adrenal gland mass protocol. Signed by: Dr. Xiomara Ulloa M.D. on 04/21/2020 6:12 PM Dictated By: XIOMARA ULLOA MD 11 Trans cribed By: CRISTINA on 04/21/201811 COPY TO: ANDRES BERRIOS leukocytes automated count (number/volume)2020-04-21 15:35:00* Test Item Value Reference Range Interpretation Comments White Blood Count (test code = 6690-2) 12.02 4.8-10.8 [facility] erythrocytes automated count (number/volume)2020-04-21 15:35:00* Test Item Value Reference Range Interpretation Comments Red Blood Count (test code = 789-8) 6.90 4.3-5.7 [facility] HospitalBlood hemoglobin measurement (moles/volume)2020-04-21 15:35:00* Test Item Value Reference Range Interpretation Comments Hemoglobin (test code = 76484-9) 18.7 14.0-18.0 [facility] HospitalAutomated blood hematocrit (volume fraction)2020-04-21 15:35:00* Test Item Value Reference Range Interpretation Comments Hematocrit (test code = 4544-3) 56.8 38.2-49.6 [facility] HospitalAutomated erythrocyte mean corpuscular fxkbfj9291-45-53 15:35:00* Test Item Value Reference Range Interpretation Comments Mean Corpuscular Volume (test code = 787-2) 82.3 81-99 [facility] HospitalAutomated erythrocyte mean corpuscular hemoglobin (mass per erythrocyte)2020-04-21 15:35:00* Test Item Value Reference Range Interpretation Comments Mean Corpuscular Hemoglobin (test code = 785-6) 27.1 28-32 [facility] HospitalAutomated erythrocyte mean corpuscular hemoglobin concentration measurement (mass/volume)2020-04-21 15:35:00* Test Item Value Reference Range Interpretation Comments Mean Corpuscular Hemoglobin Concent (test code = 786-4) 32.9 31-35 [facility] HospitalRDW NicOv-Lsr9876-49-13 15:35:00* Test Item Value Reference Range Interpretation Comments Red Cell Distribution Width (test code = 73799-5) 17.0 11.7 -14.4 [facility] HospitalAutomated blood platelet count (count/volume)2020-04-21 15:35:00* Test Item Value Reference Range Interpretation Comments Platelet Count (test code = 777-3) 252 140-360 [facility] HospitalAutomated blood segmented neutrophil count as percentage of total pxpxdunffq6414-28-73 15:35:00* Test Item Value Reference Range Interpretation Comments Neutrophils (%) (Auto) (test code = 48637-8) 47.2 38.7-80.0 [facility] HospitalAutomated blood lymphocyte count as percentage ot total znqqwwrpym2022-64-16 15:35:00* Test Item Value Reference Range Interpretation Comments Lymphocytes (%) (Auto) (test code = 736-9) 30.8 18.0-39.1 [facility] HospitalAutomated blood monocyte count as percentage of total udtzqdayue3656-87-23 15:35:00* Test Item Value Reference Range Interpretation Comments Monocytes (%) (Auto) (test code = 5905-5) 6.7 4.4-11.3 [facility] HospitalAutomated blood eosinophil count as percentage of total dofsiycijn7787-26-39 15:35:00* Test Item Value Reference Range Interpretation Comments Eosinophils (%) (Auto) (test code = 713-8) 13.3 0.0-6.0 [facility] HospitalAutomated blood basophil count as percentage of total lmihwvoful9824-65-38 15:35:00* Test Item Value Reference Range Interpretation Comments Basophils (%) (Auto) (test code = 706-2) 1.1 0.0-1.0 [facility] HospitalFluoroscopic procedure less than one hour vklacmgu4127-89-30 15:35:00* Test Item Value Reference Range Interpretation Comments IM GRANULOCYTES % (test code = IM GRANULOCYTES %) 0.9 0.0- 1.0 [facility]Automated blood neutrophil count 2020-04-21 15:35:00* Test Item Value Reference Range Interpretation Comments Neutrophils # (Auto) (test code = 751-8) 5.7 2.1-6.9 [facility] HospitalBlood lymphocytes count (number/volume) 2020-04-21 15:35:00* Test Item Value Reference Range Interpretation Comments Lymphocytes # (Auto) (test code = 79935-5) 3.7 1.0-3.2 [facility] monocytes automated count (number/volume)2020-04-21 15:35:00* Test Item Value Reference Range Interpretation Comments Monocytes # (Auto) (test code = 742-7) 0.8 0.2-0.8 [facility] HospitalAutomated blood eosinophil count 2020-04-21 15:35:00* Test Item Value Reference Range Interpretation Comments Eosinophils # (Auto) (test code = 711-2) 1.6 0.0-0.4 [facility] HospitalAutomated blood basophil count (count/volume)2020-04-21 15:35:00* Test Item Value Reference Range Interpretation Comments Basophils # (Auto) (test code = 704-7) 0.1 0.0-0.1 [facility] HospitalFluoroscopic procedure less than one hour jqidkpjx7635-57-31 15:35:00* Test Item Value Reference Range Interpretation Comments Absolute Immature Granulocyte (auto (david t code = Absolute Immature Granulocyte (auto) 0.11 0-0.1 [facility] HospitalProthrombin time (PT) in platelet poor plasma by coagulation dacyc1221-66-71 15:35:00* Test Item Value Reference Range Interpretation Comments Prothrombin Time (test code = 5902-2) 12.6 11.9-14.5 [facility] HospitalINR in Platelet poor plasma by Coagulation eeyui6214-66-37 15:35:00* Test Item Value Reference Range Interpretation Comments Prothromb Time International Ratio (test code = 6301-6) 0.89 Oral Anticoagulant Therapy INR Values:1. Low Intensity Therapy 1.5 - 2.02 . Moderate Intensity Therapy 2.0 - 3.03. High Intensity Therapy(1) 2.5 - 3. 54. High Intensity Therapy(2) 3.0 - 4.05. Panic Value INR > 5.0 [facility] sodium measurement (moles/volume)2020-04-21 15:35:00* Test Item Value Reference Range Interpretation Comments Sodium Level (test code = 2951-2) 139 136-145 [facility]ere[facility] plasma potassium measurement (moles/volume)2020-04-21 15:35:00* Test Item Value Reference Range Interpretation Comments Potassium Level (test code = 2823-3) 3.9 3.5-5.1 [facility] chloride measurement (moles/volume)2020-04-21 15:35:00* Test Item Value Reference Range Interpretation Comments Chloride Level (test code = 2075-0) 107 98-107 [facility]ererum or plasma carbon dioxide, total measurement (moles/volume)2020-04-21 15:35:00* Test Item Value Reference Range Interpretation Comments Carbon Dioxide Level (test code = 2028-9) 20 22-29 [facility]ere[facility] or plasma anion fty2835-34-90 15:35:00* Test Item Value Reference Range Interpretation Comments Anion Gap (test code = 24714-6) 15.9 8-16 [facility] or plasma urea nitrogen measurement (mass/volume)2020-04-21 15:35:00* Test Item Value Reference Range Interpretation Comments Blood Urea Nitrogen (test code = 3094-0) 13 06-03 [facility] plasma creatinine measurement (mass/volume)2020-04-21 15:35:00* Test Item Value Reference Range Interpretation Comments Creatinine (test code = 2160-0) 1.04 0.72-1.25 [facility]ererum or plasma urea nitrogen/creatinine mass yniaj4080-92-47 15:35:00* Test Item Value Reference Range Interpretation Comments BUN/Creatinine Ratio (test code = 3097-3) 13 05-03 [facility] HospitalEstimated glomerular filtration rate (GFR) mhbpkqkmjzkpe0817-72-97 15:35:00* Test Item Value Reference Range Interpretation Comments Estimat Glomerular Filtration Rate (test code = 537102883) > 60 >60 Ranges were taken from the National Kidney Disease Education Program and the [facility] literature.Reference ranges:60 or greater: Zfofmg84-59 ( for 3 consecutive months): Chronic kidney disease 15 or less: Kidney failureNortheast [facility] HospitalGlucose sdtvdxpttht1317-31-61 15:35:00* Test Item Value Reference Range Interpretation Comments Glucose Level (test code = ZPY5648) 93 74-118 [facility]ere[facility] or plasma calcium measurement (mass/volume)2020-04-21 15:35:00* Test Item Value Reference Range Interpretation Comments Calcium Level (test code = 80810-4) 9.9 8.4-10.2 [facility] HospitalFluoroscopic procedure less than one hour rqhtayds0777-11-51 15:35:00* Test Item Value Reference Range Interpretation Comments Lactic Acid Level (test code = Lactic Acid Level) 1.5 0.5- 2.0 [facility]ererum or plasma total bilirubin measurement (mass/volume)2020-04-21 15:35:00* Test Item Value Reference Range Interpretation Comments Total Bilirubin (test code = 1975-2) 0.6 0.2-1.2 [facility] HospitalFluoroscopic procedure less than one hour jxvzcsnd9402-37-29 15:35:00* Test Item Value Reference Range Interpretation Comments Aspartate Amino Transf (AST/SGOT) (test code = Aspartate Amino Transf (AST/SGOT)) 24 5-34 [facility]ererum or plasma alanine aminotransferase measurement (enzymatic activity/volume)2020-04-21 15:35:00* Test Item Value Reference Range Interpretation Comments Alanine Aminotransferase (ALT/SGPT) (test code = 1742-6) 27 0-55 [facility]ererum or plasma protein measurement (mass/volume)2020-04-21 15:35:00* Test Item Value Reference Range Interpretation Comments Total Protein (test code = 2885-2) 8.3 6.5-8.1 [facility]ererum or plasma albumin measurement (mass/volume)2020-04-21 15:35:00* Test Item Value Reference Range Interpretation Comments Albumin (test code = 1751-7) 4.1 3.5-5.0 [facility] HospitalPlasma globulin measurement (mass/volume) 2020-04-21 15:35:00* Test Item Value Reference Range Interpretation Comments Globulin (test code = 54443-5) 4.2 2.3-3.5 [facility]ererum or plasma albumin/globulin mass tzeew2197-58-53 15:35:00* Test Item Value Reference Range Interpretation Comments Albumin/Globulin Ratio (test code = 1759-0) 1.0 0.8-2.0 [facility]ererum or plasma alkaline phosphatase measurement (enzymatic activity/volume)2020-04-21 15:35:00* Test Item Value Reference Range Interpretation Comments Alkaline Phosphatase (test code = 6768-6) 93 40-150 [facility] HospitalProthrombin time (PT) in platelet poor plasma by coagulation lutgk5732-15-44 15:35:00* Test Item Value Reference Range Interpretation Comments Prothrombin Time (test code = 5902-2) 12.6 11.9-14.5 [facility] HospitalINR in Platelet poor plasma by Coagulation uyted6159-06-62 15:35:00* Test Item Value Reference Range Interpretation Comments Prothromb Time International Ratio (test code = 6301-6) 0.89 Oral Anticoagulant Therapy INR Values:1. Low Intensity Therapy 1.5 - 2.02 . Moderate Intensity Therapy 2.0 - 3.03. High Intensity Therapy(1) 2.5 - 3. 54. High Intensity Therapy(2) 3.0 - 4.05. Panic Value INR > 5.0 [facility]ere[facility] or plasma sodium measurement (moles/volume)2020-04-21 15:35:00* Test Item Value Reference Range Interpretation Comments Sodium Level (test code = 2951-2) 139 136-145 [facility]ererum or plasma potassium measurement (moles/volume)2020-04-21 15:35:00* Test Item Value Reference Range Interpretation Comments Potassium Level (test code = 2823-3) 3.9 3.5-5.1 [facility]ererum or plasma chloride measurement (moles/volume)2020-04-21 15:35:00* Test Item Value Reference Range Interpretation Comments Chloride Level (test code = 2075-0) 107 98-107 [facility]ererum or plasma carbon dioxide, total measurement (moles/volume)2020-04-21 15:35:00* Test Item Value Reference Range Interpretation Comments Carbon Dioxide Level (test code = 2028-9) 20 22-29 [facility]ererum or plasma anion xgm9013-61-48 15:35:00* Test Item Value Reference Range Interpretation Comments Anion Gap (test code = 74245-4) 15.9 8-16 [facility]ere[facility] or plasma urea nitrogen measurement (mass/volume)2020-04-21 15:35:00* Test Item Value Reference Range Interpretation Comments Blood Urea Nitrogen (test code = 3094-0) 13 7-26 [facility]ererum or plasma creatinine measurement (mass/volume)2020-04-21 15:35:00* Test Item Value Reference Range Interpretation Comments Creatinine (test code = 2160-0) 1.04 0.72-1.25 [facility]ererum or plasma urea nitrogen/creatinine mass aoauv2059-37-35 15:35:00* Test Item Value Reference Range Interpretation Comments BUN/Creatinine Ratio (test code = 3097-3) 13 6-25 [facility] HospitalEstimated glomerular filtration rate (GFR) uudxwvbngxgwz4249-53-41 15:35:00* Test Item Value Reference Range Interpretation Comments Estimat Glomerular Filtration Rate (test code = 191731152) > 60 >60 Ranges were taken from the National Kidney Disease Education Program and the [facility] literature.Reference ranges:60 or greater: Rtxapf93-82 ( for 3 consecutive months): Chronic kidney disease 15 or less: Kidney failureNortheast Baptist HospitalGlucose jaycoqjxpcu5629-15-18 15:35:00* Test Item Value Reference Range Interpretation Comments Glucose Level (test code = KJU4748) 93 74-118 [facility]ere[facility] or plasma calcium measurement (mass/volume)2020-04-21 15:35:00* Test Item Value Reference Range Interpretation Comments Calcium Level (test code = 31626-0) 9.9 8.4-10.2 [facility] HospitalFluoroscopic procedure less than one hour doqvqyfu4370-55-19 15:35:00* Test Item Value Reference Range Interpretation Comments Lactic Acid Level (test code = Lactic Acid Level) 1.5 0.5- 2.0 [facility]ererum or plasma total bilirubin measurement (mass/volume)2020-04-21 15:35:00* Test Item Value Reference Range Interpretation Comments Total Bilirubin (test code = 1975-2) 0.6 0.2-1.2 [facility] HospitalFluoroscopic procedure less than one hour jeafdwqs2285-52-43 15:35:00* Test Item Value Reference Range Interpretation Comments Aspartate Amino Transf (AST/SGOT) (test code = Aspartate Amino Transf (AST/SGOT)) 24 5-34 [facility]ererum or plasma alanine aminotransferase measurement (enzymatic activity/volume)2020-04-21 15:35:00* Test Item Value Reference Range Interpretation Comments Alanine Aminotransferase (ALT/SGPT) (test code = 1742-6) 27 0-55 [facility]ererum or plasma protein measurement (mass/volume)2020-04-21 15:35:00* Test Item Value Reference Range Interpretation Comments Total Protein (test code = 2885-2) 8.3 6.5-8.1 [facility]ererum or plasma albumin measurement (mass/volume)2020-04-21 15:35:00* Test Item Value Reference Range Interpretation Comments Albumin (test code = 1751-7) 4.1 3.5-5.0 [facility] HospitalPlasma globulin measurement (mass/volume) 2020-04-21 15:35:00* Test Item Value Reference Range Interpretation Comments Globulin (test code = 73974-5) 4.2 2.3-3.5 [facility]ere[facility] or plasma albumin/globulin mass hqxoh1382-64-33 15:35:00* Test Item Value Reference Range Interpretation Comments Albumin/Globulin Ratio (test code = 1759-0) 1.0 0.8-2.0 [facility]ererum or plasma alkaline phosphatase measurement (enzymatic activity/volume)2020-04-21 15:35:00* Test Item Value Reference Range Interpretation Comments Alkaline Phosphatase (test code = 6768-6) 93 40-150 [facility] HospitalFluoroscopic procedure less than one hour vlpyfbqn0561-82-81 15:35:00* Test Item Value Reference Range Interpretation Comments Coronavirus (PCR) (test code = Coronavirus (PCR)) NOT DETECTED NOTD ETECTED SARS-COV-2 (COVID19), HIGHRISK, RT-PCRNegative results do not preclude SARS-CoV- 2 infection and should not be used as the sole basis for patient management deci sions. Negative results must be combined with clinical observations, patient his tory, and epidemiological information. Optimum specimen types and timing for pea k viral levels during infections caused by SARS-CoV-2 have not been determined. Collection of multiple specimens ot types of specimens may be necessary to detec t virus. Improper specimen collection and handling, sequence variability under p rimers/probes, or organism present below the limit of detection may lead to fals e negative results. Positive and negative predictive values of testing are highl y dependent on prevalance. False negative test results are more likely when prev alence is high.The expected result is negative (not detected).The SARS-CoV-2 david t is intended for the qualitative detection of nucleic acid from SARS-CoV-2 in n asopharyngeal and oropharyngeal swab samples from patients who meet COVID-19 cli nical and or epidemiological criteria. For lower respiratory tract specimens, th e assay is submitted for authoriztion by FDA under an Emergency Use Authorizatio n (EUA). Testing methodology is real time RT-PCR. If received as separate collec tion devices, nasopharygeal and oropharyngeal specimens are combined for analysi s. Additional specimens may be split to a separate accession for analysi and rep orting as this test includes a single unit of service.Test results must be corre lated with clinical presentation and evaluated in the context of other laborator y and epidemiologic data. Test performance can be affected because the epidemiol ogy and clinical spectrum of infection caused by SARS-CoV-2 is not fully known. For example, the optimum types of specimens to collect and when during the cours e of infection these specimens are most likely to contain detectable viral RNA m ay not be known.This test has not been Food and Drug Administration (FDA) cleare d or approved and has been authorized by FDA under an Emergency Use Authorizatio n (EUA). The test is only authorized for the duration of the declaration that ci rcumstances exist justifying the authorization of emergency use of in vitro diag nostic tests for detection and/or diagnosis of SARS-CoV-2 under section 564(b) o f the Act, 21 U.S.C. section 360bbb-3(b)(1), unless the authorization is termina rashid or revoked sooner. [facility] are certified under the C linical Laboratory Improvement Amendments of 1988 (CLIA), 42 U.S.C. section 263a , to perform high complexity tests.Testing performed by [facility] [id number] [place], [place] [phone] Director: Mukesh Aguilera M.D.CLIA # [id number] [facility] [id number] 15:35:00* Test Item Value Reference Range Interpretation Comments Blood Culture (test code = [id number]) NO GROWTH AFTER 24 HOURS [facility]
--- NOTE | 2020-10-05 15:08 | Emergency Department Note ---
History of Present Illnes History of Present Illness Chief Complaint: COVID PUI History of Present Illness This is a 40 year old male Chief Complaint Comment Patient in from home via EMS with reports of difficulty breathing, shortness of breath and chest soreness that started yesterday. Patient reports he tested positive for covid on 09/18/2020 and felt better after going through the covid symptoms but then the current symptoms started about 2 days ago. 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 Any updates have been documented here. Past Medical History Recent Fever: No Clinical Suspicion of Infectio: No New/Unexplained Change in Ment: No Other Medical History: Polycythemia Vera Congenital adrenal hyperplasia Past Surgical History: None Review of Systems Review of Systems Constitutional: Reports no symptoms EENTM: Reports no symptoms Cardiovascular: Reports as per HPI, Reports chest pain Respiratory: Reports as per HPI, Reports dyspnea Gastrointestinal: Reports no symptoms Genitourinary: Reports no symptoms Musculoskeletal: Reports no symptoms Integumentary: Reports no symptoms Neurological: Reports no symptoms Psychological: Reports no symptoms Endocrine: Reports no symptoms Hematological/Lymphatic: Reports no symptoms Physical Exam Related Data Allergies: Coded Allergies: No Known Allergies (Unverified , 04/21/20) Triage Vital Signs Vital Signs Date Time Temp Pulse Resp B/P (MAP) Pulse Ox O2 Delivery O2 Flow Rate FiO2 10/05/20 14:45 98.5 93 32 147/82 95 Room Air Vital signs reviewed: Yes Physical Exam CONSTITUTIONAL Constitutional: Present well-developed, Present well-nourished HENT HENT: Present normocephalic, Present atraumatic, Present oropharynx clear/moist, Present nose normal HENT L/R: Present left ext ear normal, Present right ext ear normal EYES Eyes: Reports PERRL, Reports conjunctivae normal NECK Neck: Present ROM normal PULMONARY Pulmonary: Present effort normal, Present breath sounds normal CARDIOVASCULAR Cardiovascular: Present regular rhythm, Present heart sounds normal, Present capillary refill normal, Present normal rate GASTROINTESTINAL Abdominal: Present soft, Present nontender, Present bowel sounds normal GENITOURINARY Genitourinary: Present exam deferred SKIN Skin: Present warm, Present dry MUSCULOSKELETAL Musculoskeletal: Present ROM normal NEUROLOGICAL Neurological: Present alert, Present oriented x 3, Present no gross motor or sensory deficits PSYCHOLOGICAL Psychological: Present mood/affect normal, Present judgement normal Assessment & Plan Medical Decision Making MDM 40-year-old COVID positive male presents emergency department for chest pain and shortness of breath. Started 2 days ago and is episodic. Initial differential significant for current virus versus pneumonia versus pulmonary embolism among others. Workup significant for atypical PNA with WBC 18. Will rx Z-pack and he will f/u w/ PCP Assessment & Plan Final Impression: (1) Atypical pneumonia Depart Disposition: HOME, SELF-CARE Last Vital Signs Date Time Temp Pulse Resp B/P (MAP) Pulse Ox O2 Delivery O2 Flow Rate FiO2 10/05/20 14:45 98.5 93 32 147/82 95 Room Air EVERETT FORD MD Oct 05, 2020 15:08
[2020-10-05 15:15] LABS: BASOPHILS # (AUTO) 0.1 (0.0-0.1); BASOPHILS % 0.6 % (0.0-1.0); EOSINOPHILS # (AUTO) 0.8 (0.0-0.4); EOSINOPHILS % 4.6 % (0.0-6.0); HEMATOCRIT 47.2 % (38.2-49.6); HEMOGLOBIN 15.5 g/dL (14.0-18.0); LYMPHOCYTES # (AUTO) 1.8 (1.0-3.2); LYMPHOCYTES % 10.6 % (18.0-39.1); MEAN CORPUSCULAR HEMOGLOBIN 27.1 pg (28-32); MEAN CORPUSCULAR HGB CONC 32.8 g/dL (31-35); MEAN CORPUSCULAR VOLUME 82.7 fL (81-99); MONOCYTES # (AUTO) 1.5 (0.2-0.8); MONOCYTES % 8.7 % (4.4-11.3); PLATELET COUNT 417 x10e3/uL (140-360); RED BLOOD COUNT 5.71 x10e6/uL (4.3-5.7); RED CELL DISTRIBUTION WIDTH 15.9 % (11.7-14.4)
[2020-10-05 15:34] LABS: ALANINE AMINOTRANSFERASE 17 IU/L (0-55); ALBUMIN 2.7 g/dL (3.5-5.0); ALBUMIN/GLOBULIN RATIO 0.5 (0.8-2.0); ALKALINE PHOSPHATASE 78 IU/L (40-150); ANION GAP 15.8 mmol/L (8-16); BLOOD UREA NITROGEN 12 mg/dL (7-26); BUN/CREATININE RATIO 11 (6-25); CALCIUM 8.9 mg/dL (8.4-10.2); CARBON DIOXIDE 18 mmol/L (22-29); CHLORIDE 105 mmol/L (98-107); CREATININE, SERUM 1.13 mg/dL (0.72-1.25); EST GLOMERULAR FILTRATION RATE > 60 ML/MIN (60-); GLUCOSE 97 mg/dL (74-118); POTASSIUM 4.8 mmol/L (3.5-5.1); SODIUM 134 mmol/L (136-145)
--- NOTE | 2020-10-05 16:39 | Diagnostic Imaging Report ---
EXAM: CT Chest WITH contrast- Pulmonary Embolism Protocol INDICATION: Shortness of breath, cough COMPARISON: Chest CT 04/21/2020 TECHNIQUE: Chest was scanned utilizing a multidetector helical scanner from the lung apex through the level of the diaphragm after administration of IV contrast. Thin section reconstructions were obtained with special concentration on the pulmonary arteries. Coronal and sagittal reformations were obtained. Pulmonary embolism protocol was performed. IV CONTRAST: 100 cc of Isovue 370 RADIATION DOSE: Total DLP: 474 mGy*cm Dose modulation, iterative reconstruction, and/or weight based adjustment of the mA/kV was utilized to reduce the radiation dose to as low as reasonably achievable. COMPLICATIONS: None FINDINGS: LINES/ TUBES: None. PULMONARY ARTERIES: No filling defect is identified within the pulmonary arteries to the segmental level. The subsegmental pulmonary arteries are not well opacified. Main pulmonary artery measures 3.3 cm in diameter, at the upper limits of normal. LUNGS AND AIRWAYS: The central airways are patent. Bilateral dependent lower lobe consolidation. Mild right upper lobe groundglass opacities and peripheral interstitial opacities. PLEURA: The pleural spaces are clear. HEART AND MEDIASTINUM: The thyroid gland is normal. No mediastinal, hilar or axillary lymphadenopathy. The heart is normal in size.. There is no pericardial effusion. UPPER ABDOMEN: Redemonstration of bilateral heterogeneous adrenal masses. No acute findings in the upper abdomen. BONES: The visualized bony thorax is within normal limits. SOFT TISSUES: Unremarkable. IMPRESSION: No central pulmonary embolism. Bilateral dependent lower lobe consolidative opacities and right upper lobe peripheral interstitial opacities may represent atypical pneumonia. Redemonstration of bilateral heterogeneous adrenal masses. Adrenal mass protocol CT with and without IV contrast is recommended on a nonurgent outpatient basis. Signed by: Nely Mercado MD on 10/05/2020 4:36 PM
[2020-10-05] MEDS ORDERED: SODIUM CHLORIDE 0.9% 50ML 50 ML ONE (16:42)
[2020-10-05] MEDS ORDERED: IOPAMIDOL 370 MG/ML 200 ML INFUS..BTL INJ ONE (16:42)
== END 2020-10-05 17:12 | disposition home or self-care (01) ==
LOC: ER 15:04
DX: J18.9 Pneumonia, unspecified organism (principal); R07.9 Chest pain, unspecified; Z86.19 Personal history of other infectious and parasitic diseases
CPT/HCPCS: 36415; 71260; 80053; 83880; 84484; 85025; 93005; 99284; Q9967

== ENCOUNTER 2022-06-21 11:18 | Inpatient (IN) | payer BC ==
[2022-06-21] VITALS (20 sets, daily range): BP systolic 87–154; BP diastolic 58–119
[~2022-06-21] VITALS: Ht 177.8 cm; Wt 135.4 kg
[2022-06-21] MEDS ORDERED: ONDANSETRON HCL INJ 2MG/ML 2ML 2 MG/ML VIAL IV STA (11:29)
[2022-06-21] MEDS ORDERED: ACETAMINOPHEN 1000 MG/100 ML IV STA (11:29)
[2022-06-21] MEDS ORDERED: SODIUM CHLORIDE 0.9% 1000ML 1,000 ML IV STA ×2 (11:29)
[2022-06-21] MEDS ORDERED: SODIUM CHLORIDE 0.9% 500ML 500 ML IV ONE (11:45)
[2022-06-21 11:55] LABS: BASOPHILS # (AUTO) 0.1 (0.0-0.1); BASOPHILS % 0.5 % (0.0-1.0); EOSINOPHILS # (AUTO) 0.1 (0.0-0.4); EOSINOPHILS % 0.5 % (0.0-6.0); HEMATOCRIT 52.8 % (38.2-49.6); HEMOGLOBIN 17.3 g/dL (14.0-18.0); LYMPHOCYTES % 5.3 % (18.0-39.1); MEAN CORPUSCULAR HEMOGLOBIN 28.5 pg (28-32); MEAN CORPUSCULAR HGB CONC 32.8 g/dL (31-35); MEAN CORPUSCULAR VOLUME 87.1 fL (81-99); MONOCYTES # (AUTO) 0.5 (0.2-0.8); MONOCYTES % 2.5 % (4.4-11.3); NEUTROPHILS # (AUTO) 16.5 (2.1-6.9); NEUTROPHILS % 90.2 % (38.7-80.0); PLATELET COUNT 184 x10e3/uL (140-360); RED BLOOD COUNT 6.06 x10e6/uL (4.3-5.7); RED CELL DISTRIBUTION WIDTH 14.5 % (11.7-14.4)
[2022-06-21 12:05] LABS: INR 1.29; PROTHROMBIN TIME 17.2 seconds (11.9-14.5)
[2022-06-21 12:06] LABS: PARTIAL THROMBOPLASTIN TIME 34.6 seconds (23.8-35.5)
[2022-06-21 12:15] LABS: ALANINE AMINOTRANSFERASE 35 IU/L (0-55); ALBUMIN 3.3 g/dL (3.5-5.0); ALBUMIN/GLOBULIN RATIO 0.7 (0.8-2.0); ALKALINE PHOSPHATASE 86 IU/L (40-150); ANION GAP 17.2 mmol/L (8-16); BLOOD UREA NITROGEN 29 mg/dL (7-26); BUN/CREATININE RATIO 9 (6-25); CALCIUM 8.4 mg/dL (8.4-10.2); CARBON DIOXIDE 22 mmol/L (22-29); CHLORIDE 99 mmol/L (98-107); CREATINE KINASE 502 IU/L (30-200); CREATININE, SERUM 3.18 mg/dL (0.72-1.25); GLUCOSE 136 mg/dL (74-118); MAGNESIUM 1.5 MG/DL (1.3-2.1); POTASSIUM 4.2 mmol/L (3.5-5.1); SODIUM 134 mmol/L (136-145)
[2022-06-21] MEDS ORDERED: Vancomycin IV 1 GM in SODIUM CHLORIDE 0.9% 250ML 250 ML IV ONE (12:30)
[2022-06-21 12:47] LABS: BAND NEUTROPHILS % (MANUAL) 5 %; LYMPHOCYTES % (MANUAL) 6 % (19-48); MONOCYTES % (MANUAL) 3 % (3.4-9.0); NEUTROPHILS % (MANUAL) 81 % (40-74)
[2022-06-21 12:48] LABS: PLATELET ESTIMATE ADEQUATE; PLATELET MORPHOLOGY COMMENT NORMAL; RBC MORPHOLOGY COMMENT NORMAL
[2022-06-21 13:09] LABS: CLARITY,URINE CLOUDY (CLEAR); COLOR,URINE YELLOW (YELLOW); KETONES,URINE 1+ (NEGATIVE); LEUKOCYTE ESTERASE ,URINE TRACE (NEGATIVE); NITRITE,URINE POSITIVE (NEGATIVE); PROTEIN,URINE DIPSTICK 2+ (NEGATIVE); URINE UROBILINOGEN 1 mg/dL (0.2 - 1)
[2022-06-21 13:21] LABS: EPITHELIAL CELLS,URINE FEW /LPF; RBC,URINE 0-5 /HPF (0-5); WBC,URINE (MAN) >50 /HPF (0-5)
[2022-06-21 13:22] LABS: BACTERIA,URINE MODERATE /HPF
[2022-06-21] MEDS ORDERED: VASOPRESSIN INJ 20 UNIT/ML VIAL ONE (13:29)
[2022-06-21] MEDS ORDERED: HYDROCORTISONE SOD SUCCINATE 100 MG VIAL IV ONE (14:00)
[2022-06-21] MEDS ORDERED: SODIUM CHLORIDE 0.9% 1000ML 1,000 ML IV SCH (14:15)
[2022-06-21] MEDS ORDERED: ONDANSETRON HCL INJ 2MG/ML 2ML 2 MG/ML VIAL IV PRN (14:15)
[2022-06-21] MEDS: NOREPINEPHRINE 8 MG/D5W 250 ML 250 ML IV SCH ×2 (14:29→23:43)
[2022-06-21] MEDS ORDERED: NOREPINEPHRINE 8 MG/D5W 250 ML 250 ML ONE (14:32)
[2022-06-21] MEDS ORDERED: LACTATED RINGER'S 1,000 ML INJ ONE (15:00)
[2022-06-21] MEDS ORDERED: ZOLPIDEM TARTRATE 5 MG TAB PO PRN (15:00)
[2022-06-21] MEDS: ACETAMINOPHEN 325 MG TAB PO PRN (19:10)
[2022-06-21] MEDS ORDERED: ZEBETA10 MG PO (19:31)
[2022-06-21] MEDS ORDERED: LISINOPRIL2.5 MG PO (19:31)
[2022-06-21] MEDS ORDERED: DEXAMETHASONE4 MG PO (19:31)
[2022-06-21] MEDS ORDERED: FLUDROCORTISON0.1 MG PO (19:31)
[2022-06-21 20:27] LABS: CREATINE KINASE MB 3.4 ng/mL (0-5.0)
[2022-06-21] MEDS: HYDROCORTISONE SOD SUCCINATE 100 MG VIAL IV SCH (21:27)
[2022-06-21] MEDS: HEPARIN SOD (PORCINE) 5,000 UNIT/ML VIAL SC SCH (21:27)
[2022-06-22] VITALS (27 sets, daily range): BP systolic 69–147; BP diastolic 49–92
[2022-06-22] MEDS ORDERED: PIPERACILLIN/TAZOBACTAM SOD 2.25 GM VIAL ONE (01:12)
[2022-06-22] MEDS: HYDROCORTISONE SOD SUCCINATE 100 MG VIAL IV SCH ×3 (05:53→21:17)
[2022-06-22 06:45] LABS: BASOPHILS % 0.2 % (0.0-1.0); EOSINOPHILS % 0.1 % (0.0-6.0); HEMATOCRIT 49.6 % (38.2-49.6); HEMOGLOBIN 16.8 g/dL (14.0-18.0); LYMPHOCYTES # (AUTO) 0.6 (1.0-3.2); LYMPHOCYTES % 5.1 % (18.0-39.1); MEAN CORPUSCULAR HEMOGLOBIN 28.2 pg (28-32); MEAN CORPUSCULAR HGB CONC 33.9 g/dL (31-35); MEAN CORPUSCULAR VOLUME 83.2 fL (81-99); MONOCYTES # (AUTO) 0.6 (0.2-0.8); MONOCYTES % 4.9 % (4.4-11.3); NEUTROPHILS # (AUTO) 10.4 (2.1-6.9); NEUTROPHILS % 88.8 % (38.7-80.0); PLATELET COUNT 173 x10e3/uL (140-360); RED BLOOD COUNT 5.96 x10e6/uL (4.3-5.7); RED CELL DISTRIBUTION WIDTH 14.1 % (11.7-14.4)
[2022-06-22 07:08] LABS: ALBUMIN 2.9 g/dL (3.5-5.0); ALBUMIN/GLOBULIN RATIO 0.6 (0.8-2.0); ANION GAP 14.4 mmol/L (8-16); CALCIUM 8.6 mg/dL (8.4-10.2); CREATININE, SERUM 1.25 mg/dL (0.72-1.25); POTASSIUM 4.4 mmol/L (3.5-5.1)
[2022-06-22 07:21] LABS: CREATINE KINASE 285 IU/L (30-200)
[2022-06-22] MEDS ORDERED: LACTATED RINGER'S 1,000 ML INJ ONE (09:15)
[2022-06-22] MEDS: HEPARIN SOD (PORCINE) 5,000 UNIT/ML VIAL SC SCH ×2 (09:24→21:30)
[2022-06-22 15:06] LABS: CREATINE KINASE 240 IU/L (30-200)
[2022-06-22] MEDS: ACETAMINOPHEN 325 MG TAB PO PRN (22:32)
[2022-06-23] VITALS (7 sets, daily range): BP systolic 106–152; BP diastolic 74–98
[2022-06-23] MEDS: HYDROCORTISONE SOD SUCCINATE 100 MG VIAL IV SCH ×3 (04:49→21:29)
[2022-06-23 05:42] LABS: BASOPHILS % 0.2 % (0.0-1.0); EOSINOPHILS % 0.1 % (0.0-6.0); HEMATOCRIT 46.5 % (38.2-49.6); HEMOGLOBIN 15.9 g/dL (14.0-18.0); LYMPHOCYTES # (AUTO) 1.1 (1.0-3.2); LYMPHOCYTES % 11.1 % (18.0-39.1); MEAN CORPUSCULAR HEMOGLOBIN 28.3 pg (28-32); MEAN CORPUSCULAR HGB CONC 34.2 g/dL (31-35); MEAN CORPUSCULAR VOLUME 82.9 fL (81-99); MONOCYTES # (AUTO) 0.6 (0.2-0.8); MONOCYTES % 5.6 % (4.4-11.3); NEUTROPHILS % 82.2 % (38.7-80.0); PLATELET COUNT 180 x10e3/uL (140-360); RED BLOOD COUNT 5.61 x10e6/uL (4.3-5.7); RED CELL DISTRIBUTION WIDTH 14.3 % (11.7-14.4)
[2022-06-23 08:02] LABS: ALBUMIN 2.9 g/dL (3.5-5.0); ALBUMIN/GLOBULIN RATIO 0.6 (0.8-2.0); ANION GAP 17.4 mmol/L (8-16); CREATININE, SERUM 1.1 mg/dL (0.72-1.25); POTASSIUM 4.4 mmol/L (3.5-5.1)
[2022-06-23] MEDS: HEPARIN SOD (PORCINE) 5,000 UNIT/ML VIAL SC SCH ×2 (09:13→21:54)
[2022-06-23] MEDS ORDERED: SODIUM CHLORIDE 0.9% 250ML 250 ML ONE (12:48)
[2022-06-23] MEDS ORDERED: DEXTROSE 50% SYRINGE 50 ML IV PRN (16:15)
[2022-06-23] MEDS: INSULIN LISPRO 100 UNIT/1 ML 3ML VIAL SQ SCH ×2 (17:04→21:54)
[2022-06-23] MEDS: ACETAMINOPHEN 325 MG TAB PO PRN (20:35)
[2022-06-23] MEDS: BISOPROLOL FUMARATE 10 MG TAB PO SCH (21:40)
[2022-06-24] VITALS (8 sets, daily range): BP systolic 115–138; BP diastolic 72–92
[2022-06-24] MEDS: HYDROCORTISONE SOD SUCCINATE 100 MG VIAL IV SCH ×3 (06:05→21:37)
[2022-06-24] MEDS: INSULIN LISPRO 100 UNIT/1 ML 3ML VIAL SQ SCH ×4 (08:17→21:35)
[2022-06-24] MEDS: LISINOPRIL 2.5 MG TAB PO SCH (09:36)
[2022-06-24] MEDS: HEPARIN SOD (PORCINE) 5,000 UNIT/ML VIAL SC SCH ×2 (09:37→21:36)
[2022-06-24] MEDS ORDERED: ONDANSETRON HCL 4 MG ORAL DISINTEGRATING TAB PO PRN (13:00)
[2022-06-24] MEDS: METFORMIN HCL 500 MG TAB PO SCH ×2 (13:01→17:11)
[2022-06-24] MEDS ORDERED: FLUDROCORTISONE ACETATE 0.1 MG TAB PO SCH (14:00)
[2022-06-24] MEDS: ACETAMINOPHEN 325 MG TAB PO PRN (17:17)
[2022-06-24] MEDS: BISOPROLOL FUMARATE 10 MG TAB PO SCH (21:35)
[2022-06-25] VITALS: BP 157/81
[2022-06-25 04:15] VITALS: BP 148/91
[2022-06-25 05:38] LABS: BASOPHILS # (AUTO) 0.1 (0.0-0.1); BASOPHILS % 0.8 % (0.0-1.0); EOSINOPHILS # (AUTO) 0.6 (0.0-0.4); EOSINOPHILS % 6.9 % (0.0-6.0); HEMATOCRIT 46.5 % (38.2-49.6); HEMOGLOBIN 15.7 g/dL (14.0-18.0); LYMPHOCYTES # (AUTO) 2.3 (1.0-3.2); LYMPHOCYTES % 27.3 % (18.0-39.1); MEAN CORPUSCULAR HEMOGLOBIN 28.2 pg (28-32); MEAN CORPUSCULAR HGB CONC 33.8 g/dL (31-35); MEAN CORPUSCULAR VOLUME 83.5 fL (81-99); MONOCYTES # (AUTO) 0.5 (0.2-0.8); MONOCYTES % 5.9 % (4.4-11.3); NEUTROPHILS # (AUTO) 4.7 (2.1-6.9); NEUTROPHILS % 55.9 % (38.7-80.0); PLATELET COUNT 210 x10e3/uL (140-360); RED BLOOD COUNT 5.57 x10e6/uL (4.3-5.7); RED CELL DISTRIBUTION WIDTH 14.2 % (11.7-14.4)
[2022-06-25] MEDS: HYDROCORTISONE SOD SUCCINATE 100 MG VIAL IV SCH (05:44)
[2022-06-25 05:54] LABS: ALBUMIN 2.9 g/dL (3.5-5.0); ALBUMIN/GLOBULIN RATIO 0.6 (0.8-2.0); ANION GAP 15.7 mmol/L (8-16); CALCIUM 8.4 mg/dL (8.4-10.2); CREATININE, SERUM 0.8 mg/dL (0.72-1.25); POTASSIUM 3.7 mmol/L (3.5-5.1)
[2022-06-25] MEDS ORDERED: PANTOPRAZOLE SOD 40 MG TABEC PO SCH (07:30)
[2022-06-25 08:31] VITALS: BP 125/79
[2022-06-25 09:00] VITALS: BP 125/79
[2022-06-25] MEDS: LISINOPRIL 2.5 MG TAB PO SCH (09:34)
[2022-06-25] MEDS: METFORMIN HCL 500 MG TAB PO SCH ×2 (09:34→12:00)
[2022-06-25] MEDS: HEPARIN SOD (PORCINE) 5,000 UNIT/ML VIAL SC SCH (09:42)
[2022-06-25] MEDS: INSULIN LISPRO 100 UNIT/1 ML 3ML VIAL SQ SCH ×2 (09:42→11:30)
[2022-06-25] MEDS ORDERED: METFORMIN HCL500 MG PO (10:43)
[2022-06-25] MEDS ORDERED: AMOX TR-K CLV1 EAC2 PO (10:51)
== END 2022-06-25 12:14 | disposition home or self-care (01) | DRG 871 ==
LOC: ER 11:41 → ERHOLD 14:14 → ICU 18:17 → MED/SURG3 06-22 10:22
PROVIDERS: ADMIT Internal Medicine; ATTEND Internal Medicine
PROC: 3E03329 Introduction of Other Anti-infective into Peripheral Vein, Percutaneous Approach (ICD-10-PCS; principal; 2022-06-21)
PROC: 3E033XZ Introduction of Vasopressor into Peripheral Vein, Percutaneous Approach (ICD-10-PCS; 2022-06-21)
DX: A40.1 Sepsis due to streptococcus, group B (principal); R65.21 Severe sepsis with septic shock; N17.9 Acute kidney failure, unspecified; L03.115 Cellulitis of right lower limb; E87.1 Hypo-osmolality and hyponatremia; E27.8 Other specified disorders of adrenal gland; D45 Polycythemia vera; E11.65 Type 2 diabetes mellitus with hyperglycemia; Z20.822 Contact with and (suspected) exposure to COVID-19; Z79.4 Long term (current) use of insulin
CPT/HCPCS: 36415; 36555; 51700; 71045; 80053; 81001; 82550; 82553; 82948; 83036; 83605; 83735; 84484; 85025; 85610; 85730; 87040; 87086; 93005; 93971; 94799; 96361; 99284; J1644; J1720; J2405; J2543; J3370; J7030; J7040; J7050; J7121

== ENCOUNTER 2023-08-24 05:33 | Inpatient (IN) | payer BC ==
[~2023-08-24] VITALS: Ht 182.9 cm; Wt 136.7 kg
[2023-08-24] VITALS (27 sets, daily range): BP systolic 98–145; BP diastolic 56–97; PULSE 78–117; RESP 16–29; TEMP 98.7–100.9; O2SAT 90–100
[~2023-08-24 05:33] MED LIST: AMOX TR-K CLV1 EAC2 PO; DEXAMETHASONE4 MG PO; FLUDROCORTISON0.1 MG PO; LISINOPRIL2.5 MG PO; METFORMIN HCL500 MG PO; ZEBETA10 MG PO
[2023-08-24] MEDS ORDERED: SODIUM CHLORIDE 0.9% 1000ML 1,000 ML IV STA ×4 (05:49→07:27)
[2023-08-24] MEDS ORDERED: ACETAMINOPHEN 325 MG TAB PO STA (05:49)
[2023-08-24] MEDS ORDERED: ONDANSETRON HCL INJ 2MG/ML 2ML 2 MG/ML VIAL IV STA (06:11)
[2023-08-24] MEDS ORDERED: ACETAMINOPHEN 1000 MG/100 ML IV STA (06:11)
[2023-08-24] MEDS ORDERED: ACETAMINOPHEN 1000 MG/100 ML 100 ML IV ONE (06:14)
[2023-08-24] MEDS ORDERED: ONDANSETRON HCL INJ 2MG/ML 2ML 2 MG/ML VIAL ONE (06:14)
[2023-08-24 06:15] LABS: BASOPHILS # (AUTO) 0.1 (0.0-0.1); BASOPHILS % 0.4 % (0.0-1.0); EOSINOPHILS # (AUTO) 0.5 (0.0-0.4); EOSINOPHILS % 3.7 % (0.0-6.0); HEMATOCRIT 50.9 % (38.2-49.6); HEMOGLOBIN 18.3 g/dL (14.0-18.0); LYMPHOCYTES # (AUTO) 1.1 (1.0-3.2); LYMPHOCYTES % 8.8 % (18.0-39.1); MEAN CORPUSCULAR VOLUME 80.7 fL (81-99); MONOCYTES # (AUTO) 0.4 (0.2-0.8); MONOCYTES % 2.9 % (4.4-11.3); NEUTROPHILS # (AUTO) 10.7 (2.1-6.9); NEUTROPHILS % 83.3 % (38.7-80.0); PLATELET COUNT 184 x10e3/uL (140-360); RED BLOOD COUNT 6.31 x10e6/uL (4.3-5.7); RED CELL DISTRIBUTION WIDTH 13.5 % (11.7-14.4); WHITE BLOOD COUNT 12.88 x10e3/uL (4.8-10.8)
[2023-08-24] MEDS ORDERED: Vancomycin IV 1 GM in SODIUM CHLORIDE 0.9% 250ML 250 ML IV ONE (06:15)
[2023-08-24 06:37] LABS: ALANINE AMINOTRANSFERASE 30 IU/L (0-55); ALBUMIN 3.9 g/dL (3.5-5.0); ALKALINE PHOSPHATASE 101 IU/L (40-150); ANION GAP 15.8 mmol/L (8-16); BLOOD UREA NITROGEN 13 mg/dL (7-26); BUN/CREATININE RATIO 10 (6-25); CALCIUM 9.3 mg/dL (8.4-10.2); CARBON DIOXIDE 20 mmol/L (22-29); CHLORIDE 101 mmol/L (98-107); CREATINE KINASE 263 IU/L (30-200); CREATININE, SERUM 1.26 mg/dL (0.72-1.25); GLUCOSE 304 mg/dL (74-118); POTASSIUM 3.8 mmol/L (3.5-5.1); SODIUM 133 mmol/L (136-145)
[2023-08-24] MEDS ORDERED: SODIUM CHLORIDE 0.9% 500ML 500 ML IV ONE (06:45)
[2023-08-24] MEDS ORDERED: ONDANSETRON HCL INJ 2MG/ML 2ML 2 MG/ML VIAL IV PRN (07:30)
[2023-08-24] MEDS ORDERED: SODIUM CHLORIDE 0.9% 1000ML 1,000 ML IV SCH (07:30)
[2023-08-24] MEDS: NOREPINEPHRINE 8 MG/D5W 250 ML 250 ML IV SCH (08:37)
[2023-08-24 09:11] LABS: AMPHETAMINES SCREEN,URINE NEGATIVE (NEGATIVE); BENZODIAZEPINES SCREEN,URINE NEGATIVE (NEGATIVE); CLARITY,URINE CLEAR (CLEAR); COLOR,URINE YELLOW (YELLOW); LEUKOCYTE ESTERASE ,URINE NEGATIVE (NEGATIVE); NITRITE,URINE NEGATIVE (NEGATIVE); PHENCYCLIDINE SCREEN,URINE NEGATIVE (NEGATIVE); PROTEIN,URINE DIPSTICK 1+ (NEGATIVE)
[2023-08-24 09:12] LABS: KETONES,URINE NEGATIVE (NEGATIVE); URINE UROBILINOGEN 0.2 mg/dL (0.2 - 1)
[2023-08-24] MEDS ORDERED: IOPAMIDOL 370 MG/ML 100 ML INFUS..BTL INJ ONE (09:13)
[2023-08-24] MEDS ORDERED: SODIUM CHLORIDE 0.9% 100 ML ONE (09:18)
[2023-08-24 09:19] LABS: EPITHELIAL CELLS,URINE MODERATE /LPF
[2023-08-24 09:20] LABS: BACTERIA,URINE FEW /HPF
[2023-08-24] MEDS ORDERED: DEXTROSE 50% SYRINGE 50 ML IV PRN (10:15)
[2023-08-24] MEDS ORDERED: HYDROCORTISONE SOD SUCCINATE 100 MG VIAL IV ONE (10:30)
[2023-08-24] MEDS: INSULIN REGULAR, HUMAN 100 UNIT/1 ML SQ SCH ×3 (11:30→20:44)
[2023-08-24] MEDS: SODIUM BICARBONATE 8.4% 50 ML in SODIUM CHLORIDE 0.45% 1,000 ML IV SCH (15:33)
[2023-08-24 15:50] LABS: CREATINE KINASE 246 IU/L (30-200)
[2023-08-24] MEDS: Vancomycin IV 1 GM in SODIUM CHLORIDE 0.9% 250ML 250 ML IV SCH (17:45)
[2023-08-24] MEDS: ACETAMINOPHEN 325 MG TAB PO PRN (20:41)
[2023-08-24] MEDS: HYDROCORTISONE SOD SUCCINATE 100 MG VIAL IV SCH (20:41)
[2023-08-24] MEDS: HEPARIN SOD (PORCINE) 5,000 UNIT/ML VIAL SC SCH (20:43)
[2023-08-24] MEDS: BISOPROLOL FUMARATE 10 MG TAB PO SCH (22:09)
[2023-08-24] MEDS: INSULIN GLARGINE 100 UNITS/ML VIAL SQ SCH (22:11)
[2023-08-25] VITALS (45 sets, daily range): BP systolic 84–143; BP diastolic 44–93; PULSE 58–99; RESP 11–27; TEMP 97.6–98.1; O2SAT 93–100
[2023-08-25 00:46] LABS: CREATINE KINASE 201 IU/L (30-200)
[2023-08-25] MEDS: SODIUM BICARBONATE 8.4% 50 ML in SODIUM CHLORIDE 0.45% 1,000 ML IV SCH (04:28)
[2023-08-25] MEDS: Vancomycin IV 1 GM in SODIUM CHLORIDE 0.9% 250ML 250 ML IV SCH ×2 (05:39→17:07)
[2023-08-25 06:01] LABS: BASOPHILS % 0.4 % (0.0-1.0); EOSINOPHILS % 0.2 % (0.0-6.0); HEMATOCRIT 35.7 % (38.2-49.6); HEMOGLOBIN 12.6 g/dL (14.0-18.0); LYMPHOCYTES # (AUTO) 0.9 (1.0-3.2); LYMPHOCYTES % 11.1 % (18.0-39.1); MEAN CORPUSCULAR HEMOGLOBIN 28.7 pg (28-32); MEAN CORPUSCULAR HGB CONC 35.3 g/dL (31-35); MEAN CORPUSCULAR VOLUME 81.3 fL (81-99); MONOCYTES # (AUTO) 0.5 (0.2-0.8); MONOCYTES % 6.4 % (4.4-11.3); NEUTROPHILS # (AUTO) 6.9 (2.1-6.9); NEUTROPHILS % 81.1 % (38.7-80.0); PLATELET COUNT 124 x10e3/uL (140-360); RED BLOOD COUNT 4.39 x10e6/uL (4.3-5.7); RED CELL DISTRIBUTION WIDTH 13.5 % (11.7-14.4); WHITE BLOOD COUNT 8.45 x10e3/uL (4.8-10.8)
[2023-08-25] MEDS: ACETAMINOPHEN 325 MG TAB PO PRN ×2 (07:17→19:46)
[2023-08-25 07:21] LABS: ALBUMIN 2.8 g/dL (3.5-5.0); ALBUMIN/GLOBULIN RATIO 0.9 (0.8-2.0); CALCIUM 8.1 mg/dL (8.4-10.2); CREATININE, SERUM 0.83 mg/dL (0.72-1.25)
[2023-08-25 07:28] LABS: CREATINE KINASE 248 IU/L (30-200)
[2023-08-25] MEDS: NOREPINEPHRINE 8 MG/D5W 250 ML 250 ML IV SCH (08:15)
[2023-08-25] MEDS ORDERED: FLUDROCORTISONE ACETATE 0.1 MG TAB PO SCH (09:00)
[2023-08-25] MEDS: INSULIN REGULAR, HUMAN 100 UNIT/1 ML SQ SCH ×4 (09:27→20:56)
[2023-08-25] MEDS: HYDROCORTISONE SOD SUCCINATE 100 MG VIAL IV SCH ×2 (09:39→21:06)
[2023-08-25] MEDS: HEPARIN SOD (PORCINE) 5,000 UNIT/ML VIAL SC SCH ×2 (09:39→21:13)
[2023-08-25] MEDS: INSULIN GLARGINE 100 UNITS/ML VIAL SQ SCH (20:52)
[2023-08-25] MEDS: BISOPROLOL FUMARATE 10 MG TAB PO SCH (21:05)
[2023-08-26] VITALS (7 sets, daily range): BP systolic 124–151; BP diastolic 73–98; PULSE 78–93; RESP 18–20; TEMP 97.7–98.1; O2SAT 96–99
[2023-08-26 06:24] LABS: BASOPHILS % 0.4 % (0.0-1.0); EOSINOPHILS # (AUTO) 0.1 (0.0-0.4); EOSINOPHILS % 0.6 % (0.0-6.0); HEMATOCRIT 45.9 % (38.2-49.6); HEMOGLOBIN 15.8 g/dL (14.0-18.0); LYMPHOCYTES # (AUTO) 1.4 (1.0-3.2); LYMPHOCYTES % 16.6 % (18.0-39.1); MEAN CORPUSCULAR HEMOGLOBIN 28.3 pg (28-32); MEAN CORPUSCULAR HGB CONC 34.4 g/dL (31-35); MEAN CORPUSCULAR VOLUME 82.3 fL (81-99); MONOCYTES # (AUTO) 0.3 (0.2-0.8); MONOCYTES % 4.1 % (4.4-11.3); NEUTROPHILS # (AUTO) 6.5 (2.1-6.9); NEUTROPHILS % 77.5 % (38.7-80.0); PLATELET COUNT 147 x10e3/uL (140-360); RED BLOOD COUNT 5.58 x10e6/uL (4.3-5.7); RED CELL DISTRIBUTION WIDTH 13.9 % (11.7-14.4); WHITE BLOOD COUNT 8.37 x10e3/uL (4.8-10.8)
[2023-08-26 06:42] LABS: ALBUMIN/GLOBULIN RATIO 0.8 (0.8-2.0); ANION GAP 14.1 mmol/L (8-16); CALCIUM 8.8 mg/dL (8.4-10.2); CREATININE, SERUM 0.79 mg/dL (0.72-1.25); POTASSIUM 4.1 mmol/L (3.5-5.1)
[2023-08-26] MEDS: Vancomycin IV 1 GM in SODIUM CHLORIDE 0.9% 250ML 250 ML IV SCH ×2 (07:22→17:08)
[2023-08-26] MEDS: INSULIN REGULAR, HUMAN 100 UNIT/1 ML SQ SCH ×4 (08:30→21:22)
[2023-08-26] MEDS: HYDROCORTISONE SOD SUCCINATE 100 MG VIAL IV SCH ×2 (08:36→21:00)
[2023-08-26] MEDS: HEPARIN SOD (PORCINE) 5,000 UNIT/ML VIAL SC SCH ×2 (08:50→21:22)
[2023-08-26] MEDS ORDERED: ONDANSETRON HCL 4 MG ORAL DISINTEGRATING TAB PO PRN (10:00)
[2023-08-26] MEDS: BISOPROLOL FUMARATE 10 MG TAB PO SCH (21:03)
[2023-08-26] MEDS: INSULIN GLARGINE 100 UNITS/ML VIAL SQ SCH (21:21)
[2023-08-27] VITALS: BP 139/66; PULSE 82; RESP 20; TEMP 98; O2SAT 93
[2023-08-27 04:00] VITALS: BP 151/86; PULSE 84; RESP 20; TEMP 97.7; O2SAT 95
[2023-08-27] MEDS: Vancomycin IV 1 GM in SODIUM CHLORIDE 0.9% 250ML 250 ML IV SCH (06:09)
[2023-08-27] MEDS: INSULIN REGULAR, HUMAN 100 UNIT/1 ML SQ SCH ×2 (08:12→12:21)
[2023-08-27] MEDS: HYDROCORTISONE SOD SUCCINATE 100 MG VIAL IV SCH (08:19)
[2023-08-27] MEDS: HEPARIN SOD (PORCINE) 5,000 UNIT/ML VIAL SC SCH (08:20)
[2023-08-27 08:41] VITALS: BP 128/95; PULSE 60; RESP 18; TEMP 98.3; O2SAT 98
[2023-08-27 08:47] VITALS: BP 128/95; PULSE 60; RESP 18; TEMP 98.3; O2SAT 98
[2023-08-27] MEDS ORDERED: CIPRO500 MG PO (10:40)
[2023-08-27] MEDS ORDERED: GLIPIZIDE5 MG PO (10:40)
[2023-08-27] MEDS ORDERED: DOXYCYCLINE HY100 MG PO (10:40)
[2023-08-27 12:20] VITALS: BP 136/88; PULSE 55; RESP 18; TEMP 97.5; O2SAT 95
== END 2023-08-27 13:25 | disposition home or self-care (01) | DRG 871 ==
LOC: ER 05:49 → ERHOLD 07:27 → ICU 10:02 → MED/SURG2 08-25 18:06
PROVIDERS: ADMIT Internal Medicine; ATTEND Internal Medicine
PROC: 02HV33Z Insertion of Infusion Device into Superior Vena Cava, Percutaneous Approach (ICD-10-PCS; principal; 2023-08-24)
PROC: B548ZZA Ultrasonography of Superior Vena Cava, Guidance (ICD-10-PCS; 2023-08-24)
PROC: 3E04329 Introduction of Other Anti-infective into Central Vein, Percutaneous Approach (ICD-10-PCS; 2023-08-24)
DX: A41.9 Sepsis, unspecified organism (principal); R65.21 Severe sepsis with septic shock; N17.9 Acute kidney failure, unspecified; L03.115 Cellulitis of right lower limb; Z68.41 Body mass index [BMI] 40.0-44.9, adult; E25.0 Congenital adrenogenital disorders associated with enzyme deficiency; E11.65 Type 2 diabetes mellitus with hyperglycemia; D45 Polycythemia vera; G47.33 Obstructive sleep apnea (adult) (pediatric); I10 Essential (primary) hypertension; R53.81 Other malaise; E66.9 Obesity, unspecified; Z79.899 Other long term (current) drug therapy; Z79.52 Long term (current) use of systemic steroids; Z87.440 Personal history of urinary (tract) infections; Z79.890 Hormone replacement therapy; Z20.822 Contact with and (suspected) exposure to COVID-19
CPT/HCPCS: 36415; 36569; 71045; 71260; 80053; 80202; 80307; 81001; 82550; 82948; 83036; 83605; 83690; 83880; 84484; 85025; 85379; 87040; 87400; 93005; 93971; 94799; 96372; 99252; 99285; J1644; J1720; J1815; J2405; J2543; J7030; J7050; Q9967; U0002